=== PATIENT | female | born 1975 | race Caucasian/White ===

== ENCOUNTER 2023-01-15 20:23 | Outpatient (REF) | payer OTHER, BC, SELFPAY ==
[2023-01-22 14:10] LABS: Age Gdln ACOG Testing Note (.); HPV Aptima Negative (Negative); IGP, Aptima HPV, rfx 16/18,45 Note (.)
== END 2023-01-15 20:24 | disposition home or self-care (01) ==
LOC: LAB 20:23
PROVIDERS: PCP Family Medicine; Visit Provider Obstetrics & Gynecology
DX: Z01.419 Encounter for gynecological examination (general) (routine) without abnormal findings (principal)
CPT/HCPCS: 87624; G0145

== ENCOUNTER 2023-11-13 17:21 | Emergency (ER) | payer OTHER, SELFPAY ==
[2023-11-13 17:40] VITALS: BP 121/84; PULSE 107; TEMP 36.9; O2SAT 100
--- NOTE | 2023-11-13 17:53 | CT_ITS ---
The [address] [address] Patient Name: ELENO NOVOA MRN: [id number] date: 1975 Sex: F Assigned Patient Location: ER Current Patient Location: ED.MAIN Accession/Order Number: [id number] Exam Date: 11/13/2023 18:28 Report Date: 11/13/2023 19:23 At the request of: BRAIN JAMES Procedure: CT abdomen pelvis wo con EXAM: CT scan of the abdomen and pelvis without contrast. Dose reduction technique used: Automated exposure control and/or adjustment of the mA and/or kV according to patient size and/or use of iterative reconstruction technique. REASON FOR EXAM: right flank pain, r/o stone COMPARISON: CT scan dated 05/16/2015 FINDINGS: Small right lower pole renal cyst. Left total hip arthroplasty. No renal, ureteral or bladder calculi. No hydronephrosis. Normal appendix. No free fluid in the abdomen or pelvis. No free intraperitoneal air. No dilated or thickened loops of small bowel or colon. Liver, pancreas, spleen, bilateral kidneys, and bilateral adrenal glands are otherwise unremarkable within the limitations of noncontrast CT. No lymphadenopathy in the abdomen or pelvis. Remainder unremarkable. CT/CT abdomen pelvis wo con IMPRESSION: No acute abnormalities in the abdomen or pelvis. Electronically authenticated by: PRASHANTH OROZCO Date: 11/13/2023 19:23
--- NOTE | 2023-11-13 17:54 | ED.GENADUL1 ---
HPI HPI - General Adult General Chief complaint: Urogenital-Female Stated complaint: kidney stones Time Seen by Provider: 11/13/23 17:48 Source: patient Mode of arrival: walk-in Limitations: no limitations History of Present Illness HPI narrative: 48-year-old female presents to the emergency department for right flank pain. It is wrapping around her side and going towards her groin area now. She has had kidney stones previously and believes she is passing another 1. She has not had gross hematuria but was at her doctor's office yesterday and had microscopic hematuria. She developed worsening pain today and she has been nauseous. No trauma or left-sided pain. The pain is moderate. Related Data Allergies Allergy/AdvReac Type Severity Reaction Status Date / Time No Known Drug Allergies Allergy Verified 11/13/23 17:40 Opioid HPI Opioid Management Most Recent Opioid Data: Last Pain Scale 9 11/13/23 18:21 Last AUG Pain Assessment 11/13/23 18:21 Review of Systems ROS Narrative A ten point review of systems is negative except as noted above. Exam Narrative Exam Narrative: Nurses note and vital signs reviewed and patient is not hypoxic. General: The patient appears uncomfortable. Skin: Warm, dry, no pallor noted. There is no rash noted. Head: Normocephalic, atraumatic Eye: Normal conjunctiva, no drainage Ears, Nose, Mouth, and Throat: oral mucosa is moist. Nares patent. Cardiovascular: Regular Rate and Rhythm Respiratory: Patient is in no distress, no accessory muscle use, lungs are clear to auscultation, no wheezing, rales or rhonchi Back: non-tender, no bruise or rash GI: Soft and nontender Musculoskeletal: The patient has no evidence of calf tenderness, no pitting edema, symmetrical pulses noted bilaterally Neurological: A&O, normal speech Psychiatric: Cooperative Constitutional Vital Signs, click to edit/add: Last Vital Signs Temp 98.4 F 11/13/23 17:40 Pulse 107 H 11/13/23 17:40 Resp 11/13/23 17:40 BP 121/84 11/13/23 17:40 Pulse Ox 100 11/13/23 17:40 Course Vital Signs Vital signs: Vital Signs Temperature 98.4 F 11/13/23 17:40 Pulse Rate 107 H 11/13/23 17:40 Respiratory Rate 11/13/23 17:40 Blood Pressure 121/84 11/13/23 17:40 Pulse Oximetry 100 11/13/23 17:40 Temperature 98.4 F 11/13/23 17:40 Pulse Rate 107 H 11/13/23 17:40 Respiratory Rate 17 11/13/23 17:40 Blood Pressure 121/84 11/13/23 17:40 Pulse Oximetry 100 11/13/23 17:40 Medical Decision Making MDM Narrative Medical decision making narrative: Kidney stone is suspected and CAT scan is ordered and pending and the patient is signed out to Dr. Harrington. Lab Data Lab results reviewed: Yes I reviewed the patient's lab results Labs: Lab Results 11/13/23 11/13/23 Range/Units 17:50 18:05 Sodium 136 (136-145) mmol/L Potassium 3.8 (3.5-5.1) mmol/L Chloride 101 (98-107) mmol/L Carbon Dioxide 25.0 (21.0-32.0) mmol/L Anion Gap 13.8 BUN 8.0 (7.0-18.0) mg/dL Creatinine 0.75 (0.55-1.02) mg/dL Est GFR ( Amer) >60 (>=60) Est GFR (Non-Af Amer) >60 (>=60) BUN/Creatinine Ratio 10.7 Glucose 77 (74-106) mg/dL Calcium 9.7 (8.5-10.1) mg/dL Urine Color Lt. yellow (YELLOW) Urine Clarity Clear (CLEAR) Urine pH 6.5 (5.0-9.0) Ur Specific [place] <=1.005 A (1.005-1.025) Urine Protein Negative (NEG/TRACE) mg/dL Urine Glucose (UA) Negative (NEGATIVE) mg/dL Urine Ketones Negative (NEGATIVE) mg/dL Urine Occult Blood Trace-i (NEGATIVE) Urine Nitrite Negative (NEGATIVE) Urine Bilirubin Negative (NEGATIVE) Urine Urobilinogen 0.2 (0.2-1.0) EU/dL Ur Leukocyte Esterase Negative (NEGATIVE) Urine RBC 0-2 (0-2) #/HPF Urine WBC 0-2 A (NONE SEEN) #/HPF Ur Squamous Epith Cells None seen (NONE/RARE) #/LPF Urine Crystals None seen (None Seen) #/HPF Urine Bacteria Trace A (NONE SEEN) #/HPF Urine Casts None seen (NONE SEEN) #/LPF Urine Mucus None seen (NONE SEEN) Discharge Plan Discharge Patient Disposition: Still a Patient
[2023-11-13] MEDS: 0.9 % SODIUM CHLORIDE 1,000 ML 1000 ML IV (18:20)
[2023-11-13] MEDS: MORPHINE SULFATE 4 MG/ML VIAL IV (18:21)
[2023-11-13] MEDS: ONDANSETRON PF 4 MG/2 ML VIAL IV (18:22)
[2023-11-13 18:23] LABS: Anion Gap 13.8; BUN Creatinine Ratio 10.7; Calcium 9.7 mg/dL (8.5-10.1); Chloride 101 mmol/L (98-107); Estimated GFR (African America >60 (>=60); Estimated GFR (Non-African Ame >60 (>=60); Glucose 77 mg/dL (74-106); Potassium 3.8 mmol/L (3.5-5.1); Sodium 136 mmol/L (136-145)
[2023-11-13 18:30] LABS: Bilirubin Urine NEGATIVE (NEGATIVE); Blood Urine TRACE-I (NEGATIVE); Clarity Urine CLEAR (CLEAR); Color Urine LT. YELLOW (YELLOW); Glucose Urine UA NEGATIVE (NEGATIVE); Ketones Urine NEGATIVE (NEGATIVE); Leukocyte Esterase Urine NEGATIVE (NEGATIVE); Nitrite Urine NEGATIVE (NEGATIVE); Protein Urine NEGATIVE (NEG/TRACE); Specific Gravity Urine <=1.005 (1.005-1.025); Urobilinogen Urine 0.2 EU/dL (0.2-1.0); pH Urine 6.5 (5.0-9.0)
[2023-11-13 18:38] LABS: Bacteria Urine TRACE #/HPF (NONE SEEN); Cast Seen? NONE SEEN #/LPF (NONE SEEN); Crystals Seen? None Seen #/HPF (None Seen); Mucus Urine NONE SEEN (NONE SEEN); RBC Urine 0-2 #/HPF (0-2); Squamous Epithelial Cell Urine NONE SEEN #/LPF (NONE/RARE); WBC Urine 0-2 #/HPF (NONE SEEN)
[2023-11-13 19:21] LABS: Basophils Percent Auto 0.3 % (0.2-2.0); Eosinophils Absolute Auto 0.1 10^3/uL (0.0-0.7); Eosinophils Percent Auto 0.7 % (0.9-7.0); Hematocrit 34.2 % (36.0-48.0); Hemoglobin 11.3 g/dL (12.0-16.0); Immature Granulocytes Abs Auto 0.02 10^3/uL (0.00-0.03); Immature Granulocytes Pct Auto 0.3 % (0.0-0.5); Lymphocytes Absolute Auto 2.1 10^3/uL (1.2-3.8); Lymphocytes Percent Auto 29.9 % (20.5-60.0); Mean Corpuscular Hemoglobin 30.9 pg (26.7-34.0); Mean Corpuscular Volume 93.4 fL (81.0-99.0); Mean Platelet Volume 10.5 fL (9.5-13.5); Monocytes Absolute Auto 0.5 10^3/uL (0.3-0.8); Monocytes Percent Auto 7.2 % (1.7-12.0); Neutrophils Absolute Auto 4.4 10^3/uL (1.4-6.5); Neutrophils Percent Auto 61.6 % (43.0-75.0); Platelet Count 274 10^3/uL (150-450); Red Blood Count 3.66 10^6/uL (4.20-5.40); White Blood Count 7.1 10^3/uL (4.0-11.0)
[2023-11-13 20:16] VITALS: BP 108/76; PULSE 85; TEMP 36.9; O2SAT 97
[2023-11-13] MEDS: OXYBUTYNIN CHLORIDE 5 MG TAB XL 10 MG PO (20:48)
[2023-11-13 20:58] VITALS: PULSE 70; O2SAT 96
== END 2023-11-13 21:02 | disposition home or self-care (01) ==
PROVIDERS: Emergency Medicine; Emergency Provider Internal Medicine; PCP Family Medicine
DX: R39.15 Urgency of urination (principal); N32.81 Overactive bladder; Z87.442 Personal history of urinary calculi
CPT/HCPCS: 36415; 74176; 80048; 81001; 85025; 96374; 96375; 99285

== ENCOUNTER 2024-02-02 18:59 | Outpatient (REF) | payer OTHER, SELFPAY ==
--- OUTSIDE RECORDS SUMMARY | 2024-02-02 19:03 | XMS_ITS | CCD ---
Author Organization [facility] Care Team Providers Care Transformation Analyst Name Role Phone MOISÉSJONATHON WONG Unavailable Unavailable KAMI, ABDULAZIM Unavailable Unavailable KAMI, ABDULAZIM Unavailable Unavailable MORRIS CASTRO Unavailable Unavailable JEAN CARLOS IZQUIERDO Unavailable Unavailable [place] Unavailable Unavailable KAMI, ABDULAZIM Unavailable Unavailable [place] Unavailable Unavailable DAVID FRANCIS Unavailable Unavailable CASI, DR EVANGELISTA Primary Care Unavailable DREW FLOR Admitting Unavailable DREW FLOR Attending Unavailable DREW FLOR Consulting Unavailable BASHIR HOLLY Consulting Unavailable Seema Banerjee Unavailable Mimi Dangelo Unavailable MD Jean Carlos Izquierdo Primary Care Provider [phone] KAYLIN Dangelo Attending Provider Irma Colvin Unavailable Irma Colvin Admitting Unavailable Irma Colvin Attending Unavailable Jean Carlos Izquierdo Primary Care Unavailable Jean Carlos Izquierdo Primary Care Unavailable Mimi Dangelo Admitting Unavailable Mimi Dangelo Attending Unavailable MD Jean Carlos Izquierdo Primary Care Provider ZANE Colvin Attending Provider [phone] Jean Carlos Izquierdo MD Primary Care Provider MICHAEL NORIEGA Referring Unavailable JEAN CARLOS IZQUIERDO Primary Care Unavailable PRASHANTH CORDOVA Attending Unavailable JEAN CARLOS IZQUIERDO Referring Unavailable JEAN CARLOS IZQUIERDO Primary Care Unavailable JEAN CARLOS IZQUIERDO Referring Unavailable JEAN CARLOS IZQUIERDO Primary Care Unavailable TRENA DOLAN Referring Unavailable JEAN CARLOS IZQUIERDO Primary Care Unavailable JEAN CARLOS IZQUIERDO Referring Unavailable DEFJEAN CARLOS SIMPSON Primary Care Unavailable RAKEL PEREZ Attending Unavailable JEAN CARLOS IZQUIERDO Attending Unavailable JEAN CARLOS IZQUIERDO Referring Unavailable CHANCERANCEJEAN CARLOS Primary Care Unavailable RAKEL PEREZ Attending Unavailable DEFRANCE, JEAN CARLOS T Referring Unavailable DEFRANCE, JEAN CARLOS T Primary Care Unavailable DEFRANCE, JEAN CARLOS T Attending Unavailable DEFRANCE, JEAN CARLOS T Referring Unavailable DEFRANCE, JEAN CARLOS T Primary Care Unavailable DEFRANCE, JEAN CARLOS T Attending Unavailable DEFRANCE, JEAN CARLOS T Referring Unavailable DEFRANCE, JEAN CARLOS T Primary Care Unavailable DEFRANCE, JEAN CARLOS T Referring Unavailable DEFRANCE, JEAN CARLOS T Primary Care Unavailable DEFRANCE, JEAN CARLOS T Referring Unavailable DEFRANCE, JEAN CARLOS T Primary Care Unavailable YANNI CRUZ Attending Unavailable MARQUITA MONTERO Attending Unavailable DEFRANCE, JEAN CARLOS T Referring Unavailable DEFRANCE, JEAN CARLOS T Primary Care Unavailable DANIELLE GREGG Attending Unavailable DEFRANCE, JEAN CARLOS T Referring Unavailable DEFRANCE, JEAN CARLOS T Primary Care Unavailable DEFRANCE, JEAN CARLOS T Attending Unavailable DEFRANCE, JEAN CARLOS T Referring Unavailable DEFRANCE, JEAN CARLOS T Primary Care Unavailable ANNIE FRAZIER Attending Unavailable DEFRANCE, JEAN CARLOS T Referring Unavailable DEFRANCE, JEAN CARLOS T Primary Care Unavailable Trena Dolan Attending Unavailable Trena Dolan Attending Unavailable DEFRANCE, JEAN CARLOS Referring Unavailable JUDI SAWYER Attending Unavailable JR. MAYA, MORRIS Middleton Attending Unavaila CHAITANYA Crockett Attending Unavailable SAWYER, JUDI Potts Referring Unavailable BERLIN CORDERO Attending Unavailable SAWYER, JUDI Potts Referring Unavailable SAWYER, JUDI Potts Attending Unavailable BERLIN CORDERO Attending Unavailable SAWYER, JUDI T Referring Unavailable IRMA HUMPHRIES Attending Unavailable SAWYER, JUDI Potts Referring Unavailable HUMPHRIES, IRMA Shaw Attending Unavailable SAWYER, JUDI Potts Referring Unavailable BERLIN CORDERO Attending Unavailable DEFRANCE, JEAN CARLOS Potts Referring Unavailable CHAITANYA VENEGAS Attending Unavailable DEFRANCE, JEAN CARLOS Potts Referring Unavailable CHAITANYA VENEGAS Attending Unavailable DEFRANCE, JEAN CARLOS Potts Referring Unavailable JR. MAYA, MORRIS Middleton Attending Unavaila lucretia CASTRO JR., MORRIS Middleton Referring Unavaila LEE Ferrell Attending Unavailable DEFRANCE, JEAN CARLOS Primary Care Physician Allergies Allergy Classification Reported Allergen(s) Allergy Type Date of Onset Reaction(s) Facility [facility] (1 source) Contrast media; Translations: [RED DYE] Substance Allergy 0 [facility] (12 sources) Contrast media; Translations: [RED DYE] Propensity to adverse reactions to drug 0 Other (See Comments) [facility] (1 source) No Known Medication Allergies; Translations: [No Known Medication Allergies] Propensity to adverse reactions (disorder) [facility] Repository Medications Current Medications Medication Drug Class(es) Dates Sig (Normalized) Sig (Original) amitriptyline hydrochloride 25 mg oral tablet (11 sources) Tricyclic Antidepressant Start: 05-01-2023 take 1 tablet by mouth once daily amitriptyline (ELAVIL) 25 mg tablet Indications: Intractable migraine without aura and without status migrainosus Take 1 tablet (25 mg total) by mouth nightly. 90 tablet 1 05/01/2023 Active amphetamine aspartate 2.5 mg / amphetamine sulfate 2.5 mg / dextroamphetamine saccharate 2.5 mg / dextroamphetamine sulfate 2.5 mg oral tablet (15 sources) Central Nervous System Stimulant Start: 07-06-2023 take 1 tablet by mouth once daily at breakfast dextroamphetamine -amphetamine (AdderalL) 10 mg tablet Indications: Attention deficit hyperactivity disorder (ADHD), combined type Take 1 tablet (10 mg total) by mouth daily with breakfast AND 1 tablet (10 mg total) Daily after lunch. Max Daily Amount: 20 mg. 60 tablet 0 08/17/2023 Active Start: 05-21-2023 take 1 tablet by benji th once daily at breakfast dextroamphetamine-amphetamine (AdderalL) 10 mg tablet Indications: Attention deficit hyperactivity disorder (ADHD), combined type Take 1 tablet (10 mg total) by mouth daily with breakfast AND 1 tablet (10 mg total) Daily after lunch. Max Daily Amount: 20 mg. 60 tablet 0 05/21/2023 Active Start: 08-27-2021 take 10 mg by mouth twice daily Dextroamphetamine-Amphetamine Active 10 MG PO Twice daily August 27, 2021 1:00am ARIPiprazole 10 mg oral tablet (3 sources) Atypical Antipsychotic Start: 08-31-2021 take 10 mg by mouth once daily at bedtime Aripiprazole Active 10 MG PO Daily at bedtime August 31, 2021 1:00am azithromycin 250 mg oral tablet (3 sources) Macrolide Antimicrobial Start: 08-24-2023 End: 08-28-2023 azithromycin (ZITHROMAX) 250 mg tablet TAKE 2 TABLETS BY MOUTH TODAY, THEN TAKE 1 TABLET DAILY FOR 4 DAYS DIRECTED 6 tablet 0 08/24/2023 08/28/2023 Active Start: 08-11-2023 End: 08-16-2023 take 1 tablet by mouth in the morning, then take 2 tablets by mouth once daily, then take 1 tablet by mouth once daily azithromycin (ZITHROMAX) 250 mg tablet Take 1 tablet (250 mg total) by mouth in the morning for 5 days. Take 2 tablets the first day, then 1 tablet daily for 4 days.. 6 tablet 0 08/11/2023 08/16/2023 Active cholecalciferol 0.075 mg oral tablet (3 sources) Vitamin D Start: 08-31-2021 take 75 ug by mouth once daily Cholecalciferol (Vitamin D3) Active 75 MCG PO Daily August 31, 2021 1:00am Klonopin (16 sources) Benzodiazepine Start: 07-22-2023 Klonopin Oral, TID, Refills(s) 0 Start Date: 07/22/23 Status: Ordered Start: 04-20-2023 take 1 tablet by benji th twice daily as needed for anxiety clonazePAM (KlonoPIN) 0.5 mg tablet Indications: Generalized anxiety disorder Take 1 tablet (0.5 mg total) by mouth 2 (two) times a day as needed for anxiety. 180 tablet 0 04/20/2023 Active take 1 tablet by benji th twice daily clonazePAM 0.5 MG (Schedule IV Drug) TAKE 1 TABLET BY MOUTH TWICE A DAY Oral for 15 Active cloNIDine hydrochloride 0.1 mg oral tablet (3 sources) Central alpha-2 Adrenergic Agonist Start: 08-27-2021 take 0.1 mg by mouth once daily at bedtime Clonidine Hcl Active 0.1 MG PO Daily at bedtime August 27, 2021 1:00am Cymbalta (19 sources) Serotonin and Norepinephrine Reuptake Inhibitor Start: 07-22-2023 Cymbalta Oral, Refills(s) 0 Start Date: 07/22/23 Status: Ordered Start: 05-01-2023 take 2 capsules by m outh once daily DULoxetine (CYMBALTA) 60 mg capsule Take 2 capsules (120 mg total) by mouth once daily. 180 capsule 0 05/01/2023 Active Start: 08-27-2021 take 120 mg by mouth once daily at bedtime Duloxetine Active 120 MG PO Daily at bedtime August 27, 2021 1:00am take 1 capsule by mo sdh twice daily DULoxetine HCl 60 MG TAKE 1 CAPSULE (60 MG TOTAL) BY MOUTH 2 (TWO) TIMES A DAY. Oral for 15 Active eletriptan 40 mg oral tablet (16 sources) Serotonin-1b and Serotonin-1d Receptor Agonist Start: 05-28-2023 End: 09-07-2023 take 1 tablet by mouth once as needed eletriptan (RELPAX) 40 mg tablet Indications: Intractable migraine without aura and without status migrainosus Take 1 tablet (40 mg total) by mouth once as needed for migraine for up to 12 doses. May repeat in 2 hours if unresolved. Do not exceed 80 mg in 24 hours. 6 tablet 1 09/07/2023 Active Start: 12-26-2021 take 1 tablet by benji th every twenty-four hours Relpax 40 MG 1 tablet Orally Once a day for 10 day(s) Dec, Active fluconazole 150 mg oral tablet (1 source) Azole Antifungal Start: 12-30-2023 fluconazole 150 mg Tab Refills(s) 0 Start Date: 12/30/23 Status: Ordered FLUoxetine 20 mg oral capsule (1 source) Serotonin Reuptake Inhibitor take 1 capsule by mouth once daily FLUoxetine HCl 20 MG TAKE 1 CAPSULE BY MOUTH EVERY DAY Oral for 14 Active hydrOXYzine pamoate 50 mg oral capsule (3 sources) Antihistamine Start: 08-31-2021 take 50 mg by mouth every six hours Hydroxyzine Pamoate Active 50 MG PO Q6H 60 August 31, 2021 1:00am meloxicam 15 mg oral tablet (3 sources) Nonsteroidal Anti-inflammatory Drug Start: 08-27-2021 take 15 mg by mouth once daily Meloxicam Active 15 MG PO Daily August 27, 2021 1:00am nicotine 2 mg chewing gum (3 sources) Cholinergic Nicotinic Agonist Start: 08-31-2021 Nicotine (Polacrilex) Active 2 MG BUCCAL Q2H 60 August 31, 2021 1:00am pantoprazole 40 mg delayed release oral tablet (13 sources) Proton Pump Inhibitor Start: 12-01-2023 Pantoprazole Active MG PO December 01, 2023 12:00am Start: 05-12-2023 End: 09-07-2023 take 1 tablet by mouth before breakfast pantoprazole (PROTONIX) 40 mg EC tablet Indications: Dysphagia, unspecified type , Gastroesophageal reflux disease, unspecified whether esophagitis present TAKE 1 TABLET BY MOUTH IN THE MORNING AND THE EVENING. TAKE 30 MINUTES BEFORE BREAKFAST AND DINNER. 180 tablet 1 09/07/2023 Active pregabalin 50 mg oral capsule (19 sources) Start: 07-22-2023 take 1 mg by mouth twice daily Lyrica 50 mg Cap mg cap(s), Oral, BID, Refills(s) 0 Start Date: 07/22/23 Status: Ordered Start: 10-03-2022 take 2 capsules by m outh once daily pregabalin (LYRICA) 25 mg capsule Take 2 capsules (50 mg total) by mouth nightly. 0 10/03/2022 Active Start: 08-27-2021 take 1 capsule by mo uth once daily Pregabalin (Lyrica) 100 mg Capsule Active 100 MG PO Daily August 27, 2021 1:00am is gradually tapering off take 1 capsule by mo uth every eight hours Lyrica 150 MG 1 capsule p.o. tid Active promethazine hydrochloride 12.5 mg oral tablet (3 sources) Phenothiazine Start: 12-26-2021 take 1 tablet by mouth every eight hours Promethazine HCl 12.5 MG 1 tablet as needed Orally every 8 hrs for 4 days Dec, Active tamsulosin hydrochloride 0.4 mg oral capsule (1 source) alpha-Adrenergic Kelly Start: 12-01-2023 Tamsulosin Active MG PO December 01, 2023 12:00am traZODone hydrochloride 50 mg oral tablet (12 sources) Serotonin Reuptake Inhibitor Start: 07-22-2023 traZODONE 50 mg Tab Refills(s) 0 Start Date: 07/22/23 Status: Ordered Start: 01-16-2023 take 2 tablets by mo uth once daily traZODone (DESYREL) 50 mg tablet Indications: Other insomnia Take 2 tablets (100 mg total) by mouth nightly. 180 tablet 3 01/16/2023 Active valACYclovir 1000 mg oral tablet (3 sources) Herpesvirus Nucleoside Analog DNA Polymerase Inhibitor, Herpes Simplex Virus Nucleoside Analog DNA Polymerase Inhibitor, Herpes Zoster Virus Nucleoside Analog DNA Polymerase Inhibitor Start: 08-27-2021 take 1000 mg by mouth twice daily Valacyclovir Active 1000 MG PO Twice daily August 27, 2021 1:00am varenicline 1 mg oral tablet (6 sources) Partial Cholinergic Nicotinic Agonist Start: 09-25-2023 take 1 tablet by mouth at bedtime varenicline (CHANTIX) 1 mg tablet TAKE 1 TABLET BY MOUTH IN THE MORNING AND BEFORE BEDTIME. TAKE WITH FULL GLASS OF WATER 180 tablet 0 09/25/2023 Active Start: 06-01-2023 End: 08-11-2023 take 1 tablet by mouth at bedtime varenicline (CHANTIX) 1 mg tablet TAKE 1 TABLET BY MOUTH IN THE MORNING AND BEFORE BEDTIME. TAKE WITH FULL GLASS OF WATER 180 tablet 0 06/01/2023 08/11/2023 Discontinued Completed/Discontinued Medications Medication Drug Class(es) Dates Sig (Normalized) Sig (Original) amphetamine sulfate 10 mg oral tablet (3 sources) Central Nervous System Stimulant Start: 08-27-2021 End: 08-27-2021 take 10 mg by mouth twice daily Amphetamine Sulfate Discontinued 10 MG PO Twice daily August 27, 2021 1:00am August 27, 2021 8:33pm Ketorolac (7 sources) Nonsteroidal Anti-inflammatory Drug, Cyclooxygenase Inhibitor Start: 12-26-2021 Toradol per 15 mg Dec, 30 mg Start: 01-17-2019 Toradol per 15 mg Dec, 60 mg lamoTRIgine 100 mg oral tablet (12 sources) Mood Stabilizer, Anti-epileptic Agent Start: 05-21-2023 lamotrigine 100 mg Tab 90 EA, 0 Refill(s), TAKE 1 TABLET BY MOUTH EVERY DAY, Refills(s) 0 Start Date: 07/15/23 Status: Ordered levothyroxine sodium 0.1 mg oral tablet (19 sources) l-Thyroxine Start: 07-15-2023 levothyroxine 100 mcg (0.1 mg) Tab 90 EA, 0 Refill(s), TAKE 1 TABLET (100 MCG TOTAL) BY MOUTH IN THE MORNING, Refills(s) 0 Start Date: 07/15/23 Status: Ordered Start: 08-27-2021 take 1 tablet by benji th in the morning levothyroxine (SYNTHROID, LEVOTHROID) 100 MCG tablet TAKE 1 TABLET (100 MCG TOTAL) BY MOUTH IN THE MORNING 90 tablet 3 06/01/2023 Active take 1 tablet by benji th once daily in the morning Synthroid 100 MCG 1 tablet in the morning on an empty stomach Orally Once a day Active triamcinolone acetonide 40 mg/ml injectable suspension (3 sources) Corticosteroid Start: 12-26-2021 Kenalog-40 Dec, 40 mg Problems Active Problems Problem Classification Problem Date Documented Date Episodic/Chronic Abdominal pain (1 source) Flank pain 07-22-2023 Episodic Anxiety disorders (15 sources) Anxiety; Translations: [Anxiety disorder, unspecified] Onset: 01-30-2017 08-28-2021 Chronic Attention-deficit, conduct, and disruptive behavior disorders (11 sources) Attention deficit hyperactivity disorder, combined type; Translations: [Attention-deficit hyperactivity disorder, combined type] Onset: 05-14-2021 05-14-2021 Chronic Attention-deficit, conduct, and disruptive behavior disorders (1 source) Attention-deficit hyperactivity disorder, combined type; Translations: [Attention-deficit hyperactivity disorder, combined type] Onset: 05-14-2021 Chronic Attention-deficit, conduct, and disruptive behavior disorders (1 source) Attention deficit hyperactivity disorder 07-22-2023 Chronic Blindness and vision defects (1 source) Visual impairment 07-17-2023 Chronic Calculus of urinary tract (6 sources) Calculus of kidney; Translations: [Kidney stone] Onset: 11-12-2023 Episodic Conditions associated with dizziness or vertigo (1 source) Dizziness; Translations: [Dizziness and giddiness] 08-11-2023 Episodic Esophageal disorders (20 sources) Gastroesophageal reflux disease; Translations: [Gastro-esophageal reflux disease without esophagitis] Onset: 10-23-2021 10-23-2021 Chronic Genitourinary symptoms and ill-defined conditions (1 source) Increased frequency of urination 07-17-2023 Episodic Headache; including migraine (20 sources) Refractory migraine without aura; Translations: [Migraine without aura, intractable, with status migrainosus] Onset: 09-29-2018 Resolved: 12-26-2021 Chronic Immunizations and screening for infectious disease (3 sources) Contact with and (suspected) exposure to other viral communicable diseases; Translations: [Contact with and (suspected) exposure to other viral communicable diseases] Onset: 03-06-2022 Resolved: 03-06-2022 Episodic Mood disorders (20 sources) Major depressive disorder; Translations: [Major depressive disorder, single episode, unspecified] Onset: 01-30-2017 08-27-2021 Chronic Osteoarthritis (1 source) Osteoarthritis 07-17-2023 Chronic Other acquired deformities (4 sources) Lumbar spondylolisthesis; Translations: [Spondylolisthesis, lumbar region] Episodic Other aftercare (1 source) Other retirement (current) drug therapy; Translations: [OTH LONG-TERM CURRENT DRUG THERAPY] Onset: 09-09-2021 Episodic Other connective tissue disease (4 sources) Medial epicondylitis, right elbow; Translations: [MEDIAL EPICONDYLITIS, RIGHT ELBOW] Onset: 05-11-2018 Episodic Other connective tissue disease (16 sources) Fibromyalgia; Translations: [Fibromyalgia] Onset: 01-21-2018 01-21-2018 Episodic Other connective tissue disease (1 source) Pain in left hand Episodic Other diseases of kidney and ureters (1 source) Acquired renal cystic disease; Translations: [Cyst of kidney, acquired] 06-23-2023 Episodic Other diseases of kidney and ureters (1 source) Acquired renal cyst 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; Translations: [Cyst of kidney, acquired] Onset: 12-30-2023 Episodic Other diseases of kidney and ureters (1 source) Cyst of kidney 07-22-2023 Episodic Other diseases of kidney and ureters (1 source) Kidney lesion 07-22-2023 Episodic Other ear and sense organ disorders (1 source) Asymmetrical sensorineural hearing loss; Translations: [Sensorineural hearing loss, bilateral] 08-11-2023 Chronic Other ear and sense organ disorders (1 source) Sensorineural hearing loss, bilateral; Translations: [Sensorineural hearing loss, bilateral] Onset: 08-11-2023 Chronic Other ear and sense organ disorders (1 source) Hearing loss Onset: 08-11-2023 Chronic Other ear and sense organ disorders (1 source) Hearing problem Onset: 08-11-2023 Chronic Other nervous system disorders (4 sources) Complex regional pain syndrome type I of left lower limb; Translations: [Complex regional pain syndrome I of left lower limb] Chronic Other nervous system disorders (11 sources) Ulnar nerve entrapment at elbow; Translations: [Lesion of ulnar nerve, unspecified upper limb] Onset: 11-02-2017 01-16-2020 Chronic Other nervous system disorders (1 source) Trigeminal neuralgia 07-17-2023 Episodic Other non-epithelial cancer of skin (1 source) Malignant neoplasm of skin 07-17-2023 Episodic Other upper respiratory disease (1 source) Deviated nasal septum; Translations: [Deviated nasal septum] 08-11-2023 Episodic Other upper respiratory infections (1 source) Sinusitis Onset: 08-11-2023 Chronic Skin and subcutaneous tissue infections (3 sources) Onychia of finger; Translations: [Cellulitis of right finger] Onset: 12-14-2023 12-01-2023 Episodic Spondylosis; intervertebral disc disorders; other back problems (15 sources) Inflammation of sacroiliac joint; Translations: [Sacroiliitis, not elsewhere classified] Onset: 03-19-2017 03-19-2017 Chronic Spondylosis; intervertebral disc disorders; other back problems (20 sources) Pain in the coccyx; Translations: [Sacrococcygeal disorders, not elsewhere classified] Onset: 03-14-2020 04-11-2020 Episodic Substance-related disorders (1 source) Nicotine dependence, cigarettes, uncomplicated; Translations: [NICOTINE DEPEND CIGARETTES UNCOMP] Onset: 09-09-2021 Chronic Superficial injury; contusion (1 source) Contusion of left hand, initial encounter Episodic Syncope (4 sources) Syncope and collapse; Translations: [SYNCOPE AND COLLAPSE] Onset: 09-04-2021 Episodic Thyroid disorders (1 source) Hypothyroidism 07-17-2023 Chronic Unclassified (2 sources) Unknown / UNK(Unknown) Onset: 05-11-2018 Unclassified (1 source) Pain in left hand; Translations: [Pain in left hand] Onset: 10-01-2022 Unclassified (1 source) Injury, unspecified, initial encounter; Translations: [Injury, unspecified, initial encounter] Onset: 04-27-2022 Unclassified (1 source) infected middle right finger Onset: 12-14-2023 Unclassified (1 source) Finding of sensation of bladder 07-22-2023 Urinary tract infections (2 sources) Cystitis, unspecified without hematuria; Translations: [Urinary tract infectious disease] Onset: 11-03-2023 Episodic Past or Other Problems Problem Classification Problem Date Documented Da te Episodic/Chronic Mood disorders (11 sources) Mood disorders Onset: 05-25-2023 05-25-2023 Open wounds of extremities (1 source) Puncture wound without foreign body, left foot, initial encounter Onset: 10-12-2021 Resolved: 10-12-2021 Episodic Other and unspecified benign neoplasm (11 sources) History of polyp of colon; Translations: [Personal history of colonic polyps] Onset: 06-03-2023 06-03-2023 Episodic Other connective tissue disease (11 sources) Medial epicondylitis; Translations: [Medial epicondylitis, unspecified elbow] Onset: 11-02-2017 01-16-2020 Episodic Other gastrointestinal disorders (11 sources) Abdominal bloating; Translations: [Abdominal distension (gaseous)] Onset: 06-03-2023 06-03-2023 Episodic Other gastrointestinal disorders (11 sources) Constipation; Translations: [Constipation, unspecified] Onset: 06-03-2023 06-03-2023 Episodic Other gastrointestinal disorders (12 sources) Dysphagia; Translations: [Dysphagia, unspecified] Onset: 10-23-2021 Resolved: 06-03-2023 06-03-2023 Episodic Other gastrointestinal disorders (1 source) Abdominal distension (gaseous); Translations: [Abdominal distension (gaseous)] Onset: 06-03-2023 Episodic Other gastrointestinal disorders (1 source) Constipation, unspecified; Translations: [Constipation, unspecified] Onset: 06-03-2023 Episodic Other lower respiratory disease (1 source) Cough Onset: 08-11-2023 Episodic Other non-traumatic joint disorders (11 sources) Hip pain; Translations: [Pain in left hip] Onset: 08-25-2022 08-25-2022 Episodic Other upper respiratory disease (2 sources) Nasal congestion; Translations: [Nasal congestion] Onset: 08-11-2023 08-11-2023 Episodic Other upper respiratory disease (1 source) Nasal congestion; Translations: [Nasal congestion] Onset: 08-11-2023 Episodic Other upper respiratory disease (1 source) Pain in throat Onset: 08-11-2023 Episodic Other upper respiratory disease (1 source) Deviated nasal septum; Translations: [Deviated nasal septum] Onset: 08-11-2023 Episodic Other upper respiratory infections (3 sources) Acute upper respiratory infection, unspecified; Translations: [Acute maxillary sinusitis] Onset: 03-06-2022 Resolved: 03-06-2022 Episodic Unclassified (11 sources) Onset: 08-09-2019 Resolved: 08-11-2023 08-09-2019 Results Test Name Value Interpretation Reference Range Facility [facility] 12-04-2023 Lab Reports [id number] Normal [facility] 12-03-2023 Lab Reports [id number] Normal [facility] BLOOD UREA NITROGENon 2023 Urea nitrogen [Mass/Vol] 9 mg/dL Normal 5-23 [facility] Comment on above: Performed By: #### 3 094-0, 11524-7, , 2028-02, [employer], 2823- 3, 2951-2, 3084-1, 2731-8 #### [facility] ([id number]) [address], [address] [place] [address] CALCIUMon 11-27-2023 Calcium [Mass/Vol] 9.3 mg/dL Normal 8.5-10.5 [facility] Comment on above: Performed By: #### 3 094-0, 67331-2, , 2028-02, [employer], 2823- 3, 2951-2, 3084-1, 2731-8 #### [facility] ([id number]) [address], [address] [place] [address] CARBON DIOXIDEon 11-27-2023 CO2 [Moles/Vol] 27 mmol/L Normal 22-32 [facility] Comment on above: Performed By: #### 3 094-0, 74963-4, , 2028-02, [employer], 2823- 3, 2951-2, 3084-1, 2731-8 #### [facility] ([id number]) [address], [address] [place] [address] CHLORIDEon 11-27-2023 Chloride [Moles/Vol] 105 mmol/L Normal 98-109 [facility] Comment on above: Performed By: #### 3 094-0, 84931-9, , 2028-02, [employer], 2823- 3, 2951-2, 3084-1, 2731-8 #### [facility] [facility] ([id number]) [address], [address] [place] [address] CREATININEon 11-27-2023 Creatinine [Mass/Vol] 0.67 mg/dL Normal 0.40-1.00 [facility] Comment on above: Result Comment: METH OD TRACEABLE TO IDMS STANDARD Performed By: #### 3 094-0, 60845-4, , 2028-02, [employer], 2823-3, 2951-2, 3084-1, 2731-01 #### [facility] ([id number]) [address], [address] [place] [address] eGFR (CKD-EPI) NON-RACE DEPENDENT >90 Normal >59 [facility] Comment on above: Result Comment: Reported eGFR is based on the CKD-EPI 2020 equation that does not use a race coefficient. Performed By: #### 3 094-0, 66411-0, , 2028-02, [employer], 2823-3, 2951-2, 3084-1, 2731-01 #### [facility] ([id number]) [address], [address] [place] [address] POTASSIUMon 11-27-2023 Potassium [Moles/Vol] 4.2 mmol/L Normal 3.5-5.0 [facility] Comment on above: Performed By: #### 3 094-0, 72463-7, , 2028-02, [employer], 2823- 3, 2951-2, 3084-1, 2730-8 #### [facility] ([id number]) [address], [address] [place] [address] Parathyrin.intact [Mass/Vol] on 11-27-2023 PTH INTACT 62 pg/mL Normal 12-88 [facility] Comment on above: Performed By: #### 3 094-0, 04191-7, , 2028-02, [employer], 2823- 3, 2951-2, 3084-1, 2731-8 ####[facility] ([id number])[address], [address], [place] [address] SODIUMon 11-27-2023 Sodium [Moles/Vol] 138 mmol/L Normal 134-146 [facility] Comment on above: Performed By: #### 3 094-0, 43042-7, , 2028-02, [employer], 2823- 3, 2951-2, 3084-1, 2731-8 #### [facility] ([id number]) [address], [address] [place] [address] URIC ACIDon 11-27-2023 Urate [Mass/Vol] 3.5 mg/dL Normal 2.6-7.2 [facility] Comment on above: Performed By: #### 3 094-0, 59589-8, , 2028-02, [employer], 2823- 3, 2951-2, 3084-1, 2731-8 #### [facility] ([id number]) [address], [address] [place] [address] ED Note-Physicianon 11-24-19 ED Note-Physician [id number]#[id number] Normal [facility] XR SPINE CERVICAL 4 OR 5 VWS on 10-05-2023 XR SPINE CERVICAL 4 OR 5 VWS XR SPINE CERVICAL 4 OR 5 VWS History: Neck pain on the right side for 4 weeks. Exam/Technique: Cervical spine: 5 Views Comparison: None Findings: The vertebral heights and intervertebral disc spaces are normal. No evidence of fractures or malalignment is seen with straightening and loss of the normal lordosis likely from muscle spasm and minimal disc space narrowing seen at C4-5. The odonoid process is intact but limited in visualization due to overlying teeth.There is no evidence of bony cervical ribs. No prevertebral soft tissue abnormality is identified. Bilateral oblique views revealed patent neural foramina bilaterally. IMPRESSION: Normal cervical spine radiographs apart from minimal narrowing of the disc space at C4-5 and straightening with loss of the lordosis likely from muscle spasm. Finalized by Elizabeth Alejandre MD on 10/05/2023 7:49 PM Normal [facility] POCT Influenza A/Influenza B /SARS-COV-2 VeritorOrdered By: Shyann Laird on 08-11-2023 External Poct Influenza A Antigen Negative [facility] External Poct Influenza B Antigen Negative [facility] Interpretation and review of laboratory results Normal [facility] SARS-CoV-2 (COVID-19) Ag IA.rapid Ql (Resp) Negative [facility] Physician Referralon 024 Physician Referral [id number] Normal [facility] Screenson 07-28-2023 Screens [id number]#1.00TIFF Normal [facility] Formson 07-23-2023 Forms [id number]#1.00TIFF Normal [facility] Patient Educationon 07-22-19 24 Patient Education Nephrology Dietary Guidelines to Help Prevent Kidney Stones Kidney stones are deposits of minerals and salts that form inside your kidneys. Your risk of developing kidney stones may be greater depending on your diet, your lifestyle, the medicines you take, and whether you have certain medical conditions. Most people can lower their risks of developing kidney stones by following these dietary guidelines. Your dietitian may give you more specific instructions depending on your overall health and the type of kidney stones you tend to develop. What are tips for following this plan? Reading food labels ? Choose foods with no salt added or low-salt labels. Limit your salt (sodium) intake to less than 1,500 mg a day. ? Choose foods with calcium for each meal and snack. Try to eat about 300 mg of calcium at each meal. Foods that contain 200?500 mg of calcium a serving include: ? 8 oz (237 mL) of milk, gcxehhz-mbndxqczatog-iquj y milk, and calcium-fortifiedfruit juice. Calcium-fortified means that calcium has been added to these drinks. ? 8 oz (237 mL) of kefir, yogurt, and soy yogurt. ? 4 oz (114 g) of tofu. ? 1 oz (28 g) of cheese. ? 1 cup (150 g) of dried figs. ? 1 cup (91 g) of cooked broccoli. ? One 3 oz (85 g) can of sardines or mackerel. Most people need 1,000?1,500 mg of calcium a day. Talk to your dietitian about how much calcium is recommended for you. Shopping ? Buy plenty of fresh fruits and vegetables. Most people do not need to avoid fruits and vegetables, even if these foods contain nutrients that may contribute to kidney stones. ? When shopping for convenience foods, choose: ? Whole pieces of fruit. ? Pre-made salads with dressing on the side. ? Low-fat fruit and yogurt smoothies. ? Avoid buying frozen meals or prepared deli foods. These can be high in sodium. ? Look for foods with live cultures, such as yogurt and kefir. ? Choose high-fiber grains, such as whole-wheat breads, oat bran, and wheat cereals. Cooking ? Do not add salt to food when cooking. Place a salt shaker on the table and allow each person to add their own salt to taste. ? Use vegetable protein, such as beans, textured vegetable protein (TVP), or tofu, instead of meat in pasta, casseroles, and soups. Meal planning ? Eat less salt, if told by your dietitian. To do this: ? Avoid eating processed or pre-made food. ? Avoid eating fast food. ? Eat less animal protein, including cheese, meat, poultry, or fish, if told by your dietitian. To do this: ? Limit the number of times you have meat, poultry, fish, or cheese each week. Eat a diet free of meat at least 2 days a week. ? Eat only one serving each day of meat, poultry, fish, or seafood. ? When you prepare animal proteins, cut pieces into small portion sizes. For most meat and fish, one serving is about the size of the palm of your hand. ? Eat at least five servings of fresh fruits and vegetables each day. To do this: ? Keep fruits and vegetables on hand for snacks. ? Eat one piece of fruit or a handful of berries with breakfast. ? Have a salad and fruit at lunch. ? Have two kinds of vegetables at dinner. ? You may be told to limit foods that are high in a substance called oxalate. These include: ? Spinach (cooked), rhubarb, beets, sweet potatoes, and Latvian chard. ? Peanuts. ? Potato chips, kazakh fries, and baked potatoes with skin on. ? Nuts and nut products. ? Chocolate. ? If you regularly take a diuretic medicine, make sure to eat at least 1 or 2 servings of fruits or vegetables that are high in potassium each day. These include: ? Avocado. ? Banana. ? [place], prune, carrot, or tomato juice. ? Baked potato. ? Cabbage. ? Beans and split peas. Lifestyle ? Drink enough fluid to keep your urine pale yellow. This is the most important thing you can do. Spread your fluid intake throughout the day. ? If you drink alcohol: ? Limit how much you have to: ? 0?1 drink a day for women who are not . ? 0?2 drinks a day for men. ? Know how much alcohol is in your drink. In the [place] one drink equals one 12 oz bottle of beer (355 mL), one 5 oz glass of wine (148 mL), or one 1? oz glass of hard liquor (44 mL). ? Lose weight if told by your health care provider. Work with your dietitian to find an eating plan and weight loss strategies that work best for you. General information ? Talk to your health care provider and dietitian about taking daily supplements. Depending on your health and the cause of your kidney stones, you may be told: ? Do not take high-dose supplements of vitamin C (1,000 mg a day or more). ? To take a calcium supplement. ? To take a daily probiotic supplement. ? To take other supplements such as magnesium, fish oil, or vitamin B6. ? Take dtni-vfl-emktosi and prescription medicines only as told by your health care provider. These include supplements. What foods sh (more content not included)... Normal [facility] CT ABDOMEN AND PELVIS W CONT on 06-16-2023 CT ABDOMEN AND PELVIS W CONT CT ABDOMEN AND PELVIS W CONT CT ABDOMEN AND PELVIS W CONT HISTORY: Bloating, constipation COMPARISON: 05/16/2015 TECHNIQUE: CT images of abdomen and pelvis obtained following administration of contrast. Automated exposure control was utilized. All CT scans at this facility use dose modulation, iterative reconstruction, and/or weight based dosing when appropriate to reduce radiation dose to as low as reasonably achievable. CONTRAST: Oral: None IV: 100 mL Omnipaque 300 FINDINGS: LOWER CHEST: Small atelectasis versus scarring in the left lung base. No pleural effusion. No cardiomegaly or pericardial effusion. LIVER AND BILIARY: Noncirrhotic liver morphology. No definite hepatic mass or lesion. Portal venous system is patent. Gallbladder is nondistended. PANCREAS: Unremarkable SPLEEN: Unremarkable. ADRENALS: No adrenal mass or lesion bilaterally. KIDNEYS, URETERS, AND BLADDER: An incidental 1.4 cm cystic renal lesion with minimal smooth thickening of the wall, is seen in the lower pole of the right kidney. No left renal masses. There is a 4 mm nonobstructive left interpolar calculus. No evidence of collecting system dilatation. The ureters are unremarkable. View of bladder is partially obscured due to imaging artifact from left hip arthroplasty. No obvious abnormalities.. GI TRACT AND PERITONEUM: Mild to moderate colonic stool burden in the ascending and transverse colon. The appendix and terminal ileum are unremarkable. No evidence of bowel obstruction. No pericolonic fat stranding or free intraperitoneal gas. VASCULATURE: The abdominal aorta is nonaneurysmal. LYMPH NODES: No significantly enlarged mesenteric or retroperitoneal lymph nodes. REPRODUCTIVE ORGANS: Anteverted uterus is present. Grossly unremarkable. MUSCULOSKELETAL: No acute osseous abnormalities. Left hip arthroplasty with adjacent well-circumscribed lytic lesion in the superior acetabulum measuring up to 1.6 mm. 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 IMPRESSION: * No acute findings in the abdomen/pelvis. * Mild to moderate colonic stool burden. * Right renal lesion measuring 1.4 cm is a Bosniak category IIF cyst. The large majority of Bosniak IIF lesions are benign. When malignant, nearly all are indolent. Generally, Bosniak IIF lesions are followed by imaging at 6 months and 12 months, then annually for a total of 5 years to assess for morphologic change. Santana Sexton., Kendy Mitchell, Supa Yancey., Bob Garcia., Bob Aaron, Marin Hargrove., Elizabeth Linton., Marin Lindsey., Bob Quinn., Jorge Luis, S. S., Raleigh S. Denisha., Santana Herrmann., Pk Lujan., Jesús Khan., & Margie, M. S. (2019). Bosniak Classification of Cystic Renal Masses, Version 2019: An Update Proposal and Needs Assessment. Radiology, 292(2), 475?488. https://doi.org/10.1148/r adiol.[email or web address] CITATION: Colette RODAS, et al. Management of the Incidental Renal Mass on CT: A White Paper of the ACR Incidental Findings Committee. J Am Kathy Radiol. 2018 Jul;15(2):264-273. I, Vamsi Acosta MD have personally reviewed the image(s) and agree with and/or edited the report Finalized by Vamsi Acosta MD on 06/16/2023 3:03 PM Normal [facility] XR hand LT min 3V*on 023 XR hand LT min 3V* [facility] Main [place] [address] [place] [address] XRay Report Signed Patient: Evie Novoa MR#: [id number] 7 : 1975 Acct:[id number] Age/Sex: 47 / F ADM Date: 10/01/22 [facility] Room: Type: [facility] Attending Dr: Irma DEGROOT Copies to: ZANE Cuellar Ordering Provider: ZANE Cuellar Date of Service: 10/01/22 XR/XR hand LT min 3V*: Left hand pain LEFT HAND - 3 views CLINICAL DATA: Pain, swelling and bruising over the dorsum of the hand after patient grabbed a falling shelf while shopping. COMPARISON: None AP, lateral and oblique views were obtained. There is no evidence of fracture or dislocation. There is slight narrowing of the interphalangeal joint spaces, without associated hypertrophy. There is minimal soft tissue swelling over the dorsum of the metacarpal heads.. XR/XR hand LT min 3V* IMPRESSION: NO ACUTE BONY INJURY. Impression dictated by: Monserrat Vela M.D.10/01/2022 12:31 PM Dictation Location: [place] [address] Transcribed By: [facility] 10/01/22 1231 Dictated By: Monserrat Vela MD 10/01/22 1229 Signed By: 10/01/[address] [facility] XR hand LT min 3V* [facility] [employer] Other XR hand LT min 3V* [facility] [employer] Other XR hand LT min 3V* [address] [place] [address] [employer] Other XR hand LT min 3V* [place] [address] [employer] Other XR hand LT min 3V* XRay Report [employer] Other XR hand LT min 3V* Signed [employer] Other XR hand LT min 3V* Patient: Evie Novoa MR#: [id number] [employer] Other XR hand LT min 3V* 7 [employer] Other XR hand LT min 3V* : 1975 Acct:[id number] [employer] Other XR hand LT min 3V* Age/Sex: 47 / F ADM Date: 10/01/22 [employer] Other XR hand LT min 3V* Loc: [facility] Room: Type: [facility] [employer] Other XR hand LT min 3V* Attending Dr: Irma DEGROOT [employer] Other XR hand LT min 3V* Copies to: ZANE Cuellar [employer] Other XR hand LT min 3V* Ordering Provider: ZANE Cuellar [employer] Other XR hand LT min 3V* Date of Service: 10/01/22 [employer] Other XR hand LT min 3V* XR/XR hand LT min 3V*: Left hand pain [employer] Other XR hand LT min 3V* LEFT HAND - 3 views [employer] Other XR hand LT min 3V* CLINICAL DATA: Pain, swelling and bruising over the dorsum of the hand after patient grabbed a [employer] Other XR hand LT min 3V* falling shelf while shopping. [employer] Other XR hand LT min 3V* COMPARISON: None [employer] Other XR hand LT min 3V* AP, lateral and oblique views were obtained. There is no evidence of fracture or dislocation. [employer] Other XR hand LT min 3V* There is slight narrowing of the interphalangeal joint spaces, without associated hypertrophy. [employer] Other XR hand LT min 3V* There is minimal soft tissue swelling over the dorsum of the metacarpal heads.. [employer] Other XR hand LT min 3V* XR/XR hand LT min 3V* [employer] Other XR hand LT min 3V* IMPRESSION: [employer] Other XR hand LT min 3V* NO ACUTE BONY INJURY. [employer] Other XR hand LT min 3V* Impression dictated by: Monserrat Vela M.D.10/01/2022 12:31 PM [employer] Other XR hand LT min 3V* Dictation Location: [facility]-02 [employer] Other XR hand LT min 3V* Transcribed By: RITIKA 10/01/22 1231 [employer] Other XR hand LT min 3V* Dictated By: Monserrat Vela MD 10/01/22 1229 [employer] Other XR hand LT min 3V* Signed By: [employer] Other XR hand LT min 3V* 10/01/22 1237 [employer] Other MRI Hip w/o Lefton MRI Hip w/o Left History: Hip pain. Avascular necrosis. Comparison: Hip radiographs 06/12/2022. Technique: Multiplanar multisequence MRI of the left hip was performed without contrast. Findings: No acute or aggressive osseous abnormality or evidence of stress reaction. No femoral head or vascular process. Common hamstring tendon is intact. Iliopsoas and rectus femoris tendons are intact. Mild gluteus minimus tendinosis. Gluteus medius tendon is intact. No trochanteric bursal effusion. External rotators tendons are intact. Adductor compartment myotendinous structures are intact. The sciatic nerve is within normal limits in course and morphology. Nondisplaced anterior superior labral tear. Areas of high-grade partial thickness and full-thickness cartilage loss of the anterior superior femoral head and anterior superior acetabulum with degenerative subcortical cyst formation of the anterior superior acetabulum. Small left joint effusion containing a few tiny loose bodies. The visualized intrapelvic structures appear within normal limits. IMPRESSION: No femoral head avascular necrosis. Left hip osteoarthritis. Report reported and signed by Alex Lusi on 07/04/2022 1634 Normal [facility] [employer] XR finger RT 3rd digiton XR finger RT 3rd digit [facility] Main [address] [address] XRay Report Signed Patient: Evie Novoa MR#: [id number] 7 : 1975 Acct:[id number] Age/Sex: 46 / F ADM Date: 04/27/22 Loc: [facility] Room: Type: [facility] Attending Dr: Mimi Dangelo APRN Copies to: Mimi Dangelo APRN Ordering Provider: Mimi Dangelo APRN Date of Service: 04/27/22 XR/XR finger RT 3rd digit: RIGHT MIDDLE FINGER INJURY 3 viewsRIGHT 3rd digitplain film COMPARISON:None HISTORY:Injury involving the distal portion of the RIGHT middle finger. No fracture, dislocation or focal soft tissue abnormality seen. XR/XR finger RT 3rd digit IMPRESSION:No acute findings Impression dictated by: Adam Evans M.D.04/27/2022 1:46 PM Dictation Location: [place] [address] Transcribed By: [facility] 04/27/22 1346 Dictated By: Adam Evans DO 04/27/22 1345 Signed By: 04/27/[address] [facility] COVID/FLU RT-PCRon 2 SARS-CoV-2 (COVID-19) RNA WENDI+probe Ql (Unsp spec) Negative [employer] Other COVID/FLU RT-PCR Negative [facility] [employer] Other CARDIAC LISA 3-6on 2 CK [Catalytic activity/Vol] 83 U/L Normal 30-135 [facility] Comment on above: Performed By: #### C MREP #### [facility] [address] [place] [address] [address] Leticia Shay CK.MB [Mass/Vol] 1.29 ng/mL Normal <=2.37 [facility] Comment on above: Performed By: #### C MREP #### [facility] [address] [place], [place] [address] Dr. Leticia Shay HSTROP 8.1 pg/mL Normal 4.0-35.5 [facility] Comment on above: Result Comment: CUT- OFF POINTS HAVE BEEN ESTABLISHED BASED ON THE FOURTH UNIVERSAL DEFINITIONS OF MYOCARDIAL INFARCTION. THE UPPER REFERENCE LIMIT (URL) OF TROPONIN, DEFINED THE 99TH PERCENTILE OF cTnI DISTRIBUTION IN A REFERENCE POPULATION, HAS BEEN CONFIRMED THE DECISION THRESHOLD FOR [place] DIAGNOSIS. Performed By: #### C MREP #### [facility] [address] [place] [address] [address] Leticia Shay CARDIAC LISA ADMITon 022 CK [Catalytic activity/Vol] 85 U/L Normal 30-135 [facility] Comment on above: Performed By: #### B MP, CMADM #### [facility] [address] [place] [address] Dr. Leticia Shay CK.MB [Mass/Vol] 0.97 ng/mL Normal <=2.37 [facility] Comment on above: Performed By: #### B LEW, CMADM #### [facility] [address] [place] [address] Dr. Leticia Shay HSTROP 8.2 pg/mL Normal 4.0-35.5 [facility] Comment on above: Result Comment: CUT- OFF POINTS HAVE BEEN ESTABLISHED BASED ON THE FOURTH UNIVERSAL DEFINITIONS OF MYOCARDIAL INFARCTION. THE UPPER REFERENCE LIMIT (URL) OF TROPONIN, DEFINED THE 99TH PERCENTILE OF cTnI DISTRIBUTION IN A REFERENCE POPULATION, HAS BEEN CONFIRMED THE DECISION THRESHOLD FOR [place] DIAGNOSIS. Performed By: #### B LEW, CMADM #### [facility] [address] [place] [address] Dr. Leticia Shay JOSH 50.0 ng/mL Normal <=61.5 [facility] Comment on above: Performed By: #### B LEW, CMADM #### [facility] [address] [place] [address] Dr. Leticia Shay CBC AUTO DIFFon 09-05-2021 BASO # 0.0 103/ul Normal 0.0-0.1 [facility] Comment on above: Performed By: #### C BC #### [facility] [address] [place] [address] Dr. Leticia Shay Basophils/100 WBC (Bld) 0.4 % Normal 0.2-2.0 [facility] Comment on above: Performed By: #### C BC #### [facility] [address] [place] [address] Dr. Leticia Shay EO # 0.1 103/ul Normal 0.0-0.7 [facility] Comment on above: Performed By: #### C BC #### [facility] [address] [place] [address] Dr. Leticia Shay Eosinophils/100 WBC (Bld) 1.3 % Normal 0.9-7.0 [facility] Comment on above: Performed By: #### C BC #### [facility] [address] [place] [address] Dr. Leticia Shay Erythrocyte distribution width (RBC) [Ratio] 12.4 % Normal 11.0-15.0 [facility] Comment on above: Performed By: #### C BC #### [facility] [address] [place] [address] Dr. Leticia Shay Hematocrit (Bld) [Volume fraction] 35.0 % Critically low 36.0-48.0 [facility] Comment on above: Performed By: #### C BC #### [facility] [address] [place] [address] Dr. Leticia Shay Hemoglobin (Bld) [Mass/Vol] 11.7 g/dL Critically low 12.0-16.0 [facility] Comment on above: Performed By: #### C BC #### [facility] [address] [place] [address] Dr. Leticia Shay IG # 0.02 10e3/ul Normal 0.00-0.03 [facility] Comment on above: Performed By: #### C BC #### [facility] [address] [place] [address] Dr. Leticia Shay IG % 0.4 % Normal 0.0-0.5 [facility] Comment on above: Performed By: #### C BC #### [facility] [address] [place] [address] Dr. Leticia Shay LYMPH # 1.4 103/ul Normal 1.2-3.8 [facility] Comment on above: Performed By: #### C BC #### [facility] [address] [place] [address] Dr. Leticia Shay Lymphocytes/100 WBC (Bld) 26.6 % Normal 20.5-60.0 [facility] Comment on above: Performed By: #### C BC #### [facility] [address] [place] [address] Dr. Leticia Shay MANUAL DIFF REQ NO Normal [facility] Comment on above: Performed By: #### C BC #### [facility] [address] [place] [address] Dr. Leticia Shay MCH (RBC) [Entitic mass] 32.7 pg Normal 26.7-34.0 [facility] Comment on above: Performed By: #### C BC #### [facility] [address] [place] [address] Dr. Leticia Shay MCHC (RBC) [Mass/Vol] 33.4 g/dL Normal 29.9-35.2 [facility] Comment on above: Performed By: #### C BC #### [facility] [address] [place] [address] Dr. Leticia Shay MCV (RBC) [Entitic vol] 97.8 fL Normal 81.0-99.0 [facility] Comment on above: Performed By: #### C BC #### [facility] [address] [place] [address] Dr. Leticia Shay MONO # 0.4 103/ul Normal 0.3-0.8 [facility] Comment on above: Performed By: #### C BC #### [facility] [address] [place] [address] Dr. Leticia Shay Monocytes/100 WBC (Bld) 8.1 % Normal 1.7-12.0 [facility] Comment on above: Performed By: #### C BC #### [facility] [address] [place] [address] Dr. Leticia Shay NEUT # 3.4 103/ul Normal 1.4-6.5 [facility] Comment on above: Performed By: #### C BC #### [facility] [address] [place] [address] Dr. Leticia Shay Neutrophils/100 WBC (Bld) 63.2 % Normal 43.0-75.0 [facility] Comment on above: Performed By: #### C BC #### [facility] [address] [address] [address] Leticia Shay Platelet mean volume (Bld) [Entitic vol] 10.9 fL Normal 9.5-13.5 [facility] Comment on above: Performed By: #### C BC #### [facility] [address] [address] [address] Leticia Shay PLT 283 103/ul Normal 150-450 [facility] Comment on above: Performed By: #### C BC #### [facility] [address] [address] [address] Leticia Shay RBC 3.58 106/ul Critically low 4.20-5.40 [facility] Comment on above: Performed By: #### C BC #### [facility] [address] [address] [address] Leticia Shay WBC 5.3 103/ul Normal 4.0-11.0 [facility] Comment on above: Performed By: #### C BC #### [facility] [address] [address] [address] CSPINE WO CONon 2 CT CSPINE WO CON CT CERVICAL SPINE WI THOUT CONTRAST HISTORY: HEADACHE. COMPARISON: MRI cervical spine 04/24/2010. TECHNIQUE: Helical CT images were performed of the cervical spine without intravenous contrast. Dose reduction techniques were achieved by using automated exposure control and/or adjustment of mA and/or kV according to patient size and/or use of iterative reconstruction technique. FINDINGS: FIGURINE MAKER RADIOGRAPH: Unremarkable. MINERALIZATION: Normal. CRANIOCERVICAL AND ATLANTOAXIAL ARTICULATIONS: Intact with no traumatic subluxation. VERTEBRAL BODIES: Normal in height with no acute compression fracture. DISC SPACES: Normal in height with mild osteophytic spurring consistent with degenerative changes. ALIGNMENT: Normal. POSTERIOR ELEMENTS: Intact. ODONTOID PROCESS: Intact. VISUALIZED SKULL BASE: Unremarkable. SPINAL CANAL/NEURAL FORAMEN: Mild right-sided neural foraminal stenosis at C3-C4 and C4-C5 due to facet and uncovertebral hypertrophy. UPPER THORAX: Unremarkable. SOFT TISSUES OF THE NECK: Unremarkable. IMPRESSION: 1. No acute fracture or subluxation. 2. Mild degenerative changes. Electronically authenticated by: BASHIR HOLLY Date: 2021-09-04 23:30 Normal [facility] CT HEAD WO CONon 09-05-2021 CT HEAD WO CON EXAMINATION: CT HEAD WO CON, 09/04/2021 9:53 PM EDT HISTORY: HEADACHE. COMPARISON: CT head 07/17/2015, MRI brain 07/03/2016. TECHNIQUE: CT scan of the head was performed without IV contrast. CT dose reduction technique was used, including Automated Exposure Control. FINDINGS: BRAIN PARENCHYMA/CSF SPACES: Ventricles are normal in size for age. There is no hemorrhage, mass effect or midline shift. There are no other significant findings. PARANASAL SINUSES: Clear. SKULL BASE AND CALVARIUM: Normal. EXTRACRANIAL SOFT TISSUES: Normal. IMPRESSION: Normal noncontrast head CT. Electronically authenticated by: BASHIR HOLLY Date: 2021-09-04 23:31 Normal [facility] D-DIMERon 09-05-2021 D-DIMER <0.19 Normal 0.19-0.50 [facility] Comment on above: Performed By: #### D DIM #### [facility] [address] [address] [address] Leticia Shay D-DIMER COMMENTS SEE BELOW Normal [facility] Comment on above: Result Comment: Incr eases in D-Dimer concentration observed with thromboembolic events can be variable due to localization, size, and age of the thrombus. Therefore, a thromboembolic event cannot be diagnosed with certainty on the basis of the reference range. D-Dimers may also be elevated for a variety of disorders including: advanced age, , coronary disease, cancer, liver disease, infection, inflammation, hematoma, DIC, trauma, post-surgery, diabetes, thrombolytic or anticoagulant therapy, stress, and generalized hospitalization. Performed By: #### D DIM #### [facility] [address] [address] [address] Leticia Shay PROF CHEM 8 (BAS METB)on Anion gap [Moles/Vol] 8.3 mmol/L Normal [facility] Comment on above: Performed By: #### B MP, CMADM #### [facility] [address] [address] [address] Leticia Shay Calcium [Mass/Vol] 9.3 mg/dL Normal 8.4-10.2 [facility] Comment on above: Performed By: #### B LEW, CMADM #### [facility] [address] [place] [address] Dr. Leticia Shay Chloride [Moles/Vol] 105 mmol/L Normal 98-107 [facility] Comment on above: Performed By: #### B LEW, CMADM #### [facility] [address] [address] [address] Leticia Shay CO2 [Moles/Vol] 31.5 mmol/L Critically high 22.0-30.0 [facility] Comment on above: Performed By: #### B LEW, CMADM #### [facility] [address] [place] [address] Dr. Leticia Shay Creatinine [Mass/Vol] 0.81 mg/dL Normal 0.52-1.04 [facility] Comment on above: Performed By: #### B LEW, CMADM #### [facility] [address] [address] [address] Leticia Shay EGFR-AF BURMESE >60 Normal >=60 [facility] Comment on above: Performed By: #### B LEW, CMADM #### [facility] [address] [place] [address] Dr. Leticia Shay EGFR-NON AF BURMESE >60 Normal >=60 [facility] Comment on above: Performed By: #### B LEW, CMADM #### [facility] [address] [address] [address] Leticia Shay Glucose [Mass/Vol] 80 mg/dL Normal 74-106 [facility] Comment on above: Performed By: #### B LEW, CMADM #### [facility] [address] [address] [address] Leticia Shay Potassium [Moles/Vol] 3.8 mmol/L Normal 3.4-5.0 [facility] Comment on above: Performed By: #### B LEW, CMADM #### [facility] [address] [address] [address] Leticia Shay Sodium [Moles/Vol] 141 mmol/L Normal 137-145 [facility] Comment on above: Performed By: #### B MATT HACKETT #### [facility] [address] [address] [address] Leticia Shay Urea nitrogen [Mass/Vol] 15.0 mg/dL Normal 7.0-17.0 [facility] Comment on above: Performed By: #### B MATT HACKETT #### [facility] [address] [address] [address] Leticia Shay Urea nitrogen/Creatini ne [Mass ratio] 18.5 mg/mg Normal [facility] Comment on above: Performed By: #### B MATT HACKETT #### [facility] [address] [place] [address] Dr. Leticia Shay XR CHEST 1 Von 09-05-2021 XR CHEST 1 V EXAMINATION: XR CHES T 1 V, 09/04/2021 9:53 PM EDT HISTORY: SHORTNESS OF BREATH COMPARISON: Chest 09/23/2012 TECHNIQUE: Chest x-ray: One view. FINDINGS: SUPPORT APPARATUS/POST-SURGICAL CHANGES: Normal. CARDIOMEDIASTINAL SILHOUETTE: Normal. AIRWAYS/LUNGS: Normal. PLEURAL SPACES: No pleural effusion or pneumothorax. BONES AND SOFT TISSUES: No acute abnormality. IMPRESSION: Normal chest radiograph. Electronically authenticated by: BASHIR HOLLY Date: 2021-09-04 23:29 Normal [facility] XR HIP LT 2 3V W PELVISon XR HIP LT 2 3V W PELVIS XR HIP LT 2 3V W PELVIS: HISTORY: Pain. COMPARISON: CT abdomen pelvis 11.515.. TECHNIQUE: 3 radiographic view(s) obtained. FINDINGS: BONES/JOINT SPACES: There is no acute fracture or dislocation. Moderate degenerative changes of the bilateral hips. There are no other significant findings. SOFT TISSUES: Normal. IMPRESSION: 1. No acute osseous abnormality. 2. Moderate degenerative changes of the bilateral hips. Electronically authenticated by: BASHIR HOLLY Date: 2021-09-04 23:30 Normal [facility] Operative Reporton 8 Operative Report MR#: [id number] [facility] Pt. Name: Evie Novoa Room #: 0C Discharge Date: Birthdate: 1975 OPERATIVE REPORTDATE OF SURGERY: 05/11/2018SURGEON: Yohan Dumont M.D.BI DATA MODELER: Daniel Bass M.D.PREOPERATIVE DIAGNOSIS: Right medial epicondylitis.POSTOPERATI VE DIAGNOSIS: Right medial epicondylitis.OPERATIVE PROCEDURE: Right medial Nirschl procedure.DESCRIPTION OF PROCEDURE: Under regional anesthetic, the patient's rightupper extremity was prepped and draped for the proposed procedure.Tourniquet was applied to right proximal humerus, was inflated to 250 mmHgfollowing exsanguination of the limb by application of an Esmarch bandage.A posteromedial incision was made at the right elbow. This was performedunder 3.5 times loupe magnification. Hemostasis was obtained with the useof cautery. The flexor pronator fascia was delineated and then an incisionwas made along the lines of the tendons. This allowed retraction of theoverlying tendons exposing the deep tendon.Noted was that there was some fibrofatty changes to the tendon origin aswell as an associated bone spur at this level. For the most part, thetendons appeared healthy. The fibrofatty tissue was excised and Nirschlscratch test was used to debride any remaining abnormal tissues. The bonyprominence was also debrided with the use of a rongeur.Wound irrigated with normal saline solution and closed the fascia with a2-0 Vicryl established in a running fashion followed by closure ofsubcutaneous tissue with 3-0 Vicryl and closure of skin with a 4-0 Biosynestablished in a running subcuticular fashion. Wound was reinforced withSteri-Strips and a sterile dressing was applied. There were nocomplications. The patient was returned to recovery room in stablecondition.Sasha arreaga Signed by:Yohan Dumont M.D. 05/12/2018 10:04 A Yohan Dumont M.D.Date Dict: 05/11/2018/11:50 Denisha/Yohan Dumont M.D.Date Trans: 05/11/2018 09:29 P/[id number] cc: Jean Carlos Izquierdo M.D. [address] [facility] [address] Morris Castro DO [address] [facility] [address] Normal [facility] POC GLUCOSE LABon 05-11-2018 Glucose mass conc 84 mg/dL Normal 70-100 [facility] Comment on above: Performed By: #### [id number] ####[facility] [facility].[address] POC URINE PREGNANCYon 2017 HCG.beta subunit ( test) Ql (U) Negative Normal NEGATIVE [facility] Comment on above: Result Comment: Perf ormed in PACU Performed By: #### [id number] ####[facility] [facility].[address] CNOVon 01-23-2017 CNOV Office Visit (KIT) EVIE NOVOA ([id number]) 1975 [facility] Time Provider Department01/23/17 8:40 AM JONATHON RECINOS During your visit today, we recorded the following information about you: Pulse Blood pressure Weight Height 84/minute 111/76 95.3 kg 1.727 Tyson Recinos MD 01/30/2017 4:45 PM SignedOTONEUROLOGY CONSULTATIONReferral source: Self (Evaluation)Chief Complaint:Imbalance / FallsDizziness: Lightheadedness (over the past 2-4 weeks)HeadacheNeck: Pain / lack of mobilityRUE tinglingFeels like she's going to black out when she lays on the back of her neck##################### ######################### ######################### ######################### ######################### ###########Impressions: Issues of dizziness, imbalance, headache, neck pain and occipitalneuralgia. Likely overlap between a peripheral vestibular disturbance, abnormalupper cervical spine biomechanics, migraine, a tendency toward orthostaticintolerance and possible occipital nerve irritation on the right. Chronic dailyheadache with elements of chronic migraine, cervicogenic headache and occipitalnerve irritation on the right.Disorders include: Possible peripheral vestibular disturbance on the left(neurolabyrinthitis). Patient manifests an asymmetry of upper cervical spinebiomechanics. This may be the consequence of a peripheral vestibular disorderand arthritis. This may underlie issues of cervicalgia and may provide asubstrate for headache. Cervical spine issues may be complicated by occipitalnerve irritation on the right. All of this may have exacerbated a tendencytoward migraine with a component of visual-motion sensitivity. Gait is unsteadyand likely related to the vestibular syndromeRecommendations/P ashley:Neck physical therapy: consider further ptMigraine:- Start magnesium oxide 400mg/day as a migraine supplement.- Handout regarding migraine and diet was given to the patient.- Abortive treatment of headache: reduce iburpoofen as toleartesFurther testing: none at this timeConsider repeat cervical MRIConsider comprehensive audiometryMedications:Con bryce Lyrica. Consider increasing the doseC1-3 inj per pain anesthesia (already scheduled)Consider greater occipital nerve trigger point injections on the rightFollow-up: PRN###################### ######################### ######################### ######################### ######################### ##########History:Precedi ng URI symptoms: NoOnset of symptoms: In usual state of health until about 2 yrs ago.3 yrs ago - started to experience daily headachesWalking from the bathroom to the bed. Did not trip. Was dark. Fell onto herface - rug barn; no LOCStarted to experience mild, intermittent imbalance.Gradual worsening over timeNow:Imbalance:Constan t / whenever moving faster. Can happen when just standing up or takingher first stepmoderateNo clear correlation with fatigue.Worse when more stressedWorse in the afternoon / less in the amFalls:Started about 2 yrsCatches herself - at least 1x/day - R/LNo recent falls (last was october 2016 - onto the counter - not the floor)Dizziness: Lightheadedness (over the past 2-4 weeks)On/offLasting secondsNo clear triggersHeadache (see JAMA section)################# ######################### ########################V estibular: Dizziness: (see hpi) Imbalance: see hpi Veering: R/L Falls: See hpiHearing: ANDquot;not very goodANDquot; - hard to discern what people are saying x1.5 to 2 yrsWorse on the left. Gradual declineTinnitus: intermittent AU - Ringing - over the past 6 monthsMusculosketal Ear: none Neck:Neck: Pain / lack of mobilityFeels like she's going to black out when she lays on the back of her head -since october / more noticeable over the summerNeeds to lay on her sideHeadaches:TeensPrior to age 40:FrontalSharpThrobbingN o n/v/p/pANDlt; 1 day4x/weekAge 38Daily headachesMore severe over timeNow:Base of skull / frontalSharpThrobbing+-N (10% of the time)phonoDaily / near constant - not present for a couple of hours with meds - [id number] - 2x/day, daily x 6 months Visual Features: Dots/Spots, Bright - with a change in headache (since age38) - 1/month Aggravators: Hunger (started in the past), Weather Changes (after age 38),Scents/Smells (since 2004), Stress and Menstrual periods (before 2007 - uterineablation) Alleviators: Rest, Sleep and OTC Meds and relpax (once every 3 months -w/ benefit though makes her tired) Associated Vestibular Symptoms: noCoffee - 1/2 pot per day - since college################## ######################### #######################Re view of Systems:General: Energy: not good / always tired x yrs / worse over the past 1.5 to 2 yrs Sleep: abnormal - not sure why. X yrs Insomnia - Yes Frequent awakenings - YesWeakness:Right hand - poor deputy k 9 - 1x/day x 3-4 yrs - more aware of itSensory:R hand tingling (fingers / thumb) - on/off x 3-4 yrsGI - Bowel dysfunction: constipationGU - Bladder dysfunction: frequencyVisual dysfunction: normalSwallow problems: normalCardiac: Chest pain: noOrthstatic Intolerance: LOC - x1 - age 10 - standing for about 5 min at an event - presyncope andthen LOC x seconds Presyncope - see hpi; frequent - old issue / whole life - mainly whenstanding still Sens to hot showers - none Palp - nonePulmonary: Dyspnea on Exertion: noneSkin: Rashes: NonePsychiatry: Anxiety / Depression:Both - on meds, better over the past 1 yr - not sure why###################### ######################### ###################The diagnostic work-up for this problem thus far has included: Consultation Dx Date LocationPCP yENT nNeuro y ANDquot;central vestibular dysfunctionANDquot;CardsP ain Y C4 through C6 nerve block - last Thursday - helped a little withright shoulder blade x yrs. Less right shoulder pain.Less right hand numbness / tinglingGI############### #######################Te sting Result Date LocationHead CT yMRI y 07/03/16 normal (per my review)Cervical MRI y 08/03/16 Poor quality. No clear disc disease (per my review)Audio nVNG Y (no calorics) - ANDquot;normalANDquot;?EM G/NCV 07/14/2016 - lower extrem ANDquot;normalANDquot; (per patient)RUE EMG/NCV y 2009 ANDquot;normalANDquot; (per neuro notes)################### ################Treatment for current illness:Medications:Ibupr ofenPercocet - 1/2 tab - 1/week over the past monthrelpax PRNlyrica - since 2011 - tolerates this. W/ benefit for painProcedures/Surgery:PT Other Neck - 2 attempts in same facility - neck turn - instant pain right eyebrowto right ear to RUE.Second attempt - u/s + stim x 8 weeks - increase in symptoms - [facility] - w/ above neckChiropractic manipulation - no####################### ######################### ##################Past Medical History: Head / Neck trauma: No HTN: No DM: No Elevated cholesterol: No Thyroid disease: hypothyroid GERD: NoPAST SURGICAL [id number]: BREAST [id number]: [id number]: PAST SURGICAL HISTORY OF Left Comment: knee arthroscopyPAST SURGICAL [id number]: BREAST [id number]: [id number]: PAST SURGICAL HISTORY OF Left Comment: knee arthroscopyPAST MEDICAL HISTORYDiagnosis Date- ADD (attention deficit disorder)- Anxiety and depression- Fibromyalgia 2010- Hypothyroid- Osteoarthritis 2010 swelling in knuckles / knees. 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 worked: Current / summer vacation Tobacco Use: d/c 2 weeks ago - 1/2 ppd x 13 yrs Alcohol Use: No (sobriety x 3 yrs)Family history significant for: Hearing problems: No Dizziness: No Headache: Daughters x 2 NV: No Stroke: mother Similar disorders:############### ######################### ######################### #Physical Examination: Comprehensive neurological and otological examinations,including musculoskeletal examination of the cervical spine revealed thefollowing findings:Vitals: BP 111/76 (BP Site: Left Arm, BP Position: Sitting, BP Cuff Size:Regular Adult) Pulse 84 Ht 172.7 cm (5' 8ANDquot;) Wt 95.3 kg (210 lb) BMI 31.93 kg/n6Vuwrqkp: Well developed. Well nourished. No acute distress.Pain Behaviors: no pain behaviors observedCarotid examination was normal.General cardiac examination was normal.Mental status examination: Alert and Oriented to time, place and person.Language: fluent speech(limited evaluation)Cranial Nerve exam:Ophthalmologic: Visual felipe were normal. Fundoscopic exam was normal.Pupils were symmetric and reactive to light. Eye movements: normal, smooth pursuits, no nystagmus. Symptoms associated w/ eye movements: C/o lightheadedness with gaze to theleft; this improved with manual cervical tractionOtological examination: Hernandez: lateralized to the right on the scalp Rinne: normal (ACANDgt;BC) Tympanic membranes: normal Finger rub: reduced on the left Response to 256 Hz tuning fork: normal Recruitment: left hyperacusisFacial Strength: symmetricFacial Sensation: Right Left V1 (scalp) Normal Normal V1 Normal Normal V2 Normal Normal V3 Normal Normal Ear (sup.) Normal Reduced Left RightGON tender none moderateParaC2 tender mild mild to moderatePost. Vertex Normal NormalNormal palatal elevation.Tongue midline. Right LeftOral sensation: Ant Tongue - - Post Tongue dec - Post PharynxCervical spine examination: Position: neutral Flexion: normal and painless Lateral C1 process tenderness: tender bilaterally - R(sig)ANDgt;L Upper Cervical Rotation: Reduced right Sidebend: Reduced left Total Cervical Rotation: Reduced right C1 malrotation: LeftNeck Vibration Testing: Right LeftSuboccipital - -Masseter Numb sensation + woosySCM + -Motor Exam: Tone: Normal with no atrophy or fasciculations Tremor : None Pronator Drift: NoneNormal shoulder shrug.Strength (out of 5): Right LeftHand Intrins 5 55th digit abd 5 5Wrist ext 5 5Shoulder abd. 5 5Hip flex 5 5Knee ext 5 5Ankle Dorsifl 5 5Shoulder Flex 5 5DTR's (out of 4): Right LeftBR 2+ 2+BJ 1+ 1+TJ 2+ 1+KJ 2+ 2+AJ 1+ 1+Plantar resp. not tested not testedSensory Exam: Gross UE to PP: normal Gross LE to PP: N/TCoordination examination: Gekvob-nz-mgvq testing was normal bilaterally.Kfne-hg-pmnc testing was normal bilaterally.Postural stability: Romberg: normalGait examination: Usual gait: Moderate base. stable Heel walk: normal Toe walk: normal Tandem (Forward): somewhat unsteady Tandem (Reverse): somewhat unsteady################# ######################### ########################H A 8, 7 w/ cervical traction################# ######################### ########################T he patient was personally seen and examined by myself.Jonathon Recinos MDOtoneurology / NeurologyCenter for Headache and PainNeurological InstituteAdena Health SystemT33cc: Jean Carlos Holland MD *(sent via [employer] - to esc*)(Results of consultation to be transmitted via electronic medical record forthose providers who practice within [facility] or with access to [employer] via [employer], or via letter)Total time of 78 minutes was spent with the patient regarding the above.Referring Provider: SELF [[id number]]Allergies As of Date: 01/23/2017(No Known Allergies)Date Reviewed: 01/23/2017Reviewed by: Jonathon Recinos - Fully AssessedReason for Visit: Balance [140] Headache [52] Neck Pain [135]Reason For Visit History RecordedPrimary Visit Diagnosis:Imbalance [R26.89] Other Visit Diagnoses: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] Chronic migraine without aura, with intractable migraine, so stated, with status migrainosus [G43.711] Labyrinthitis of left ear [H83.02] Occipital neuralgia of right side [M54.81] 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 [M50.120] Neck pain [M54.2]Order(s):pregabali n (LYRICA) 150 mg capsuleTake 1 capsule by mouth three times daily.Disp: Rfl: SUMAtriptan (IMITREX) 50 mg tabletTake 1 tablet by mouth as needed.Disp: 9 tabletRfl: 3Prescriptions as of 01/23/2017 Sig: BUPROPION XL 300 MG 24 HR TAB Take 300 mg by mouth once theresa* DEXTROAMPHETAMINE-AMPHETA MINE* Take 20 mg by mouth twice theresa* DULOXETINE 60 MG CAPSULE,RAMIRO* Take 60 mg by mouth twice theresa* IBUPROFEN 800 MG TABLET Take 800 mg by mouth every 6 * LEVOTHYROXINE 100 MCG TABLET Take 100 mcg by mouth daily b* TIZANIDINE 4 MG CAPSULE Take 4 mg by mouth once daily. PREGABALIN 150 MG CAPSULE Take 1 capsule by mouth three* SUMATRIPTAN 50 MG TABLET Take 1 tablet by mouth as nee*Problem List As Of Date: 01/23/2017(None)Prescript ions ordered this encounter Disp Refills Start End PREGABALIN 150 MG CAPSULE 01/23/2017 Class: Med Update Route: ORAL Sig: Take 1 capsule by mouth three times daily. SUMATRIPTAN 50 MG TABLET 9 ta* 3 01/23/2017 Route: ORAL Sig: Take 1 tablet by mouth as needed.Follow-up and Disposition History RecordedEncounter Number: [id number] Status:Closed by JONATHON RECINOS MD on 01/30/17 [facility] PROGRESSon 01-23-2017 PROGRESS HNO ID: [id number] thor: Jonathon Markervice: (none)Author Type: PhysicianType: Progress NotesFiled: 01/30/2017 4:45 PMNote Text:OTONEUROLOGY CONSULTATIONReferral source: Self (Evaluation)Chief Complaint:Imbalance / FallsDizziness: Lightheadedness (over the past 2-4 weeks)HeadacheNeck: Pain / lack of mobilityRUE tinglingFeels like she's going to black out when she lays on the back of her neck##################### ######################### ######################### ######################### ######################### ###########Impressions: Issues of dizziness, imbalance, headache, neck pain andoccipital neuralgia. Likely overlap between a peripheral vestibulardisturbance, abnormal upper cervical spine biomechanics, migraine, atendency toward orthostatic intolerance and possible occipital nerveirritation on the right. Chronic daily headache with elements of chronicmigraine, cervicogenic headache and occipital nerve irritation on theright.Disorders include: Possible peripheral vestibular disturbance on the left(neurolabyrinthitis). Patient manifests an asymmetry of upper cervicalspine biomechanics. This may be the consequence of a peripheral vestibulardisorder and arthritis. This may underlie issues of cervicalgia and mayprovide a substrate for headache. Cervical spine issues may be complicatedby occipital nerve irritation on the right. All of this may haveexacerbated a tendency toward migraine with a component of visual-motionsensitivity. Gait is unsteady and likely related to the vestibularsyndromeRecomme ndations/Plan:Neck physical therapy: consider further ptMigraine:- Start magnesium oxide 400mg/day as a migraine supplement.- Handout regarding migraine and diet was given to the patient.- Abortive treatment of headache: reduce iburpoofen as toleartesFurther testing: none at this timeConsider repeat cervical MRIConsider comprehensive audiometryMedications:Con bryce Moralez. Consider increasing the doseC1-3 inj per pain anesthesia (already scheduled)Consider greater occipital nerve trigger point injections on the rightFollow-up: PRN###################### ######################### ######################### ######################### ######################### ##########History:Precedi ng URI symptoms: NoOnset of symptoms: In usual state of health until about 2 yrs ago.3 yrs ago - started to experience daily headachesWalking from the bathroom to the bed. Did not trip. Was dark. Fell ontoher face - rug barn; no LOCStarted to experience mild, intermittent imbalance.Gradual worsening over timeNow:Imbalance:Constan t / whenever moving faster. Can happen when just standing up ortaking her first stepmoderateNo clear correlation with fatigue.Worse when more stressedWorse in the afternoon / less in the amFalls:Started about 2 yrsCatches herself - at least 1x/day - R/LNo recent falls (last was october 2016 - onto the counter - not the floor)Dizziness: Lightheadedness (over the past 2-4 weeks)On/offLasting secondsNo clear triggersHeadache (see JAMA section)################# ######################### ########################V estibular: Dizziness: (see hpi) Imbalance: see hpi Veering: R/L Falls: See hpiHearing: not very good - hard to discern what people are saying x 1.5 to2 yrsWorse on the left. Gradual declineTinnitus: intermittent AU - Ringing - over the past 6 monthsMusculosketal Ear: none Neck:Neck: Pain / lack of mobilityFeels like she's going to black out when she lays on the back of her head- since may / more noticeable over the summerNeeds to lay on her sideHeadaches:TeensPrior to age 40:FrontalSharpThrobbingN o n/v/p/p< 1 day4x/weekAge 38Daily headachesMore severe over timeNow:Base of skull / frontalSharpThrobbing+-N (10% of the time)phonoDaily / near constant - not present for a couple of hours with meds -ibuprofen 800mg - 2x/day, daily x 6 months Visual Features: Dots/Spots, Bright - with a change in headache(since age 38) - 1/month Aggravators: Hunger (started in the past), Weather Changes (after age38), Scents/Smells (since 2004), Stress and Menstrual periods (before 2007- uterine ablation) Alleviators: Rest, Sleep and OTC Meds and relpax (once every 3months - w/ benefit though makes her tired) Associated Vestibular Symptoms: noCoffee - 1/2 pot per day - since college################## ######################### #######################Re view of Systems:General: Energy: not good / always tired x yrs / worse over the past 1.5 to 2yrs Sleep: abnormal - not sure why. X yrs Insomnia - Yes Frequent awakenings - YesWeakness:Right hand - poor deputy k 9 - 1x/day x 3-4 yrs - more aware of itSensory:R hand tingling (fingers / thumb) - on/off x 3-4 yrsGI - Bowel dysfunction: constipationGU - Bladder dysfunction: frequencyVisual dysfunction: normalSwallow problems: normalCardiac: Chest pain: noOrthstatic Intolerance: LOC - x1 - age 10 - standing for about 5 min at an event - presyncopeand then LOC x seconds Presyncope - see hpi; frequent - old issue / whole life - mainly whenstanding still Sens to hot showers - none Palp - nonePulmonary: Dyspnea on Exertion: noneSkin: Rashes: NonePsychiatry: Anxiety / Depression:Both - on meds, better over the past 1 yr - not sure why###################### ######################### ###################The diagnostic work-up for this problem thus far has included: Consultation Dx Date LocationPCP yENT nNeuro y central vestibular dysfunction CardsPain Y C4 through C6 nerve block - last Thursday - helped a littlewith right shoulder blade x yrs. Less right shoulder pain.Less right hand numbness / tinglingGI############### #######################Te sting Result Date LocationHead CT yMRI y 07/03/16 normal (per my review)Cervical MRI y 08/03/16 Poor quality. No clear disc disease (per [place])Audio nVNG Y (no calorics) - normal ?EMG/NCV 07/14/2016 - lower extrem normal (per patient)RUE EMG/NCV y 2009 normal (per neuro notes)################### ################Treatment for current illness:Medications:Ibupr ofenPercocet - 1/2 tab - 1/week over the past monthrelpax PRNlyrica - since 2011 - tolerates this. W/ benefit for painProcedures/Surgery:PT Other Neck - 2 attempts in same facility - neck turn - instant pain righteyebrow to right ear to RUE.Second attempt - u/s + stim x 8 weeks - [facility] in [facility] - w/ above neckChiropractic manipulation - no####################### ######################### ##################Past Medical History: Head / Neck trauma: No HTN: No DM: No Elevated cholesterol: No Thyroid disease: hypothyroid GERD: NoPAST SURGICAL [id number]: BREAST [id number]: [id number]: PAST SURGICAL HISTORY OF Left Comment: knee arthroscopyPAST SURGICAL [id number]: BREAST [id number]: [id number]: PAST SURGICAL HISTORY OF Left Comment: knee arthroscopyPAST MEDICAL HISTORYDiagnosis Date- ADD (attention deficit disorder)- Anxiety and depression- Fibromyalgia 2010- Hypothyroid- Osteoarthritis 2010 swelling in knuckles / knees. 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 worked: Current / summer vacation Tobacco Use: d/c 2 weeks ago - 1/2 ppd x 13 yrs Alcohol Use: No (sobriety x 3 yrs)Family history significant for: Hearing problems: No Dizziness: No Headache: Daughters x 2 NV: No Stroke: mother Similar disorders:############### ######################### ######################### #Physical Examination: Comprehensive neurological and otologicalexaminations, including musculoskeletal examination of the cervical spinerevealed the following findings:Vitals: BP 111/76 (BP Site: Left Arm, BP Position: Sitting, BP Cuff Size:Regular Adult) Pulse 84 Ht 172.7 cm (5' 8 ) Wt 95.3 kg (210 lb) BMI 31.93 kg/i7Owdrkij: Well developed. Well nourished. No acute distress.Pain Behaviors: no pain behaviors observedCarotid examination was normal.General cardiac examination was normal.Mental status examination: Alert and Oriented to time, place and person.Language: fluent speech(limited evaluation)Cranial Nerve exam:Ophthalmologic: Visual felipe were normal. Fundoscopic exam was normal.Pupils were symmetric and reactive to light. Eye movements: normal, smooth pursuits, no nystagmus. Symptoms associated w/ eye movements: C/o lightheadedness with gaze tothe left; this improved with manual cervical tractionOtological examination: Hernandez: lateralized to the right on the scalp Rinne: normal (AC>BC) Tympanic membranes: normal Finger rub: reduced on the left Response to 256 Hz tuning fork: normal Recruitment: left hyperacusisFacial Strength: symmetricFacial Sensation: Right Left V1 (scalp) Normal Normal V1 Normal Normal V2 Normal Normal V3 Normal Normal Ear (sup.) Normal Reduced Left RightGON tender none moderateParaC2 tender mild mild to moderatePost. Vertex Normal NormalNormal palatal elevation.Tongue midline. Right LeftOral sensation: Ant Tongue - - Post Tongue dec - Post PharynxCervical spine examination: Position: neutral Flexion: normal and painless Lateral C1 process tenderness: tender bilaterally - R(sig)>L Upper Cervical Rotation: Reduced right Sidebend: Reduced left Total Cervical Rotation: Reduced right C1 malrotation: LeftNeck Vibration Testing: Right LeftSuboccipital - -Masseter Numb sensation + woosySCM + -Motor Exam: Tone: Normal with no atrophy or fasciculations Tremor : None Pronator Drift: NoneNormal shoulder shrug.Strength (out of 5): Right LeftHand Intrins 5 55th digit abd 5 5Wrist ext 5 5Shoulder abd. 5 5Hip flex 5 5Knee ext 5 5Ankle Dorsifl 5 5Shoulder Flex 5 5DTR's (out of 4): Right LeftBR 2+ 2+BJ 1+ 1+TJ 2+ 1+KJ 2+ 2+AJ 1+ 1+Plantar resp. not tested not testedSensory Exam: Gross UE to PP: normal Gross LE to PP: N/TCoordination examination: Hkjfea-rf-qxge testing was normal bilaterally.Yief-oj-avml testing was normal bilaterally.Postural stability: Romberg: normalGait examination: Usual gait: Moderate base. stable Heel walk: normal Toe walk: normal Tandem (Forward): somewhat unsteady Tandem (Reverse): somewhat unsteady################# ######################### ########################H A 8, 7 w/ cervical traction################# ######################### ########################T he patient was personally seen and examined by myself.Jonathon Recinos MDOtoneurology / NeurologyCenter for Headache and PainNeurological InstituteAdena Health SystemT33cc: Jean Carlos Holland MD *(sent via [employer] - to [facility]*)(Results of consultation to be transmitted via electronic medical recordfor those providers who practice within [facility] or with access to [employer] MD Connect, or via letter)Total time of 78 minutes was spent with the patient regarding the above. Normal [facility] Vital Signs Date Time Vital Sign Value Performing Clinician Facility 12-30-2023 09:03-0400 Blood Pressure Location [employer] [facility] 12-30-2023 09:03-0400 Diastolic blood pressure 77 mm[Hg] Trena Lue [facility] 12-30-2023 09:03-0400 Heart rate 68 /min Trena Lue [facility] 12-30-2023 09:03-0400 Systolic blood pressure 106 mm[Hg] Trena Lue [facility] 12-01-2023 16:46-0400 Body height 167.64 cm [facility] 12-01-2023 16:46-0400 Body mass index (BMI) [Ratio] 33.6 kg/m2 [facility] 12-01-2023 16:46-0400 Body temperature 97.5 [degF] [facility] 12-01-2023 16:46-0400 Body weight 94.51 kg [facility] 12-01-2023 16:46-0400 Diastolic blood pressure 68 mm[Hg] [facility] 12-01-2023 16:46-0400 Heart rate 81 /min [facility] 12-01-2023 16:46-0400 Respiratory rate 18 /min [facility] 12-01-2023 16:46-0400 SaO2% (BldA) [Mass fraction] 97 % [facility] 12-01-2023 16:46-0400 Systolic blood pressure 99 mm[Hg] [facility] 08-11-2023 13:12-0500 Body mass index (BMI) [Ratio] 31.47 kg/m2 Danielle Gregg CABLE ENGINEER [employer] Work Phone: [facility] 08-11-2023 13:12-0500 Body temperature 98.49 [degF] Danielle Beaner CABLE ENGINEER [employer] Work Phone: [facility] 08-11-2023 13:12-0500 Body weight 93.89 kg Danielle Gregg CABLE ENGINEER [employer] Work Phone: [facility] 08-11-2023 13:12-0500 Diastolic blood pressure 68 mm[Hg] Danielle Gregg CABLE ENGINEER [employer] Work Phone: [facility] 08-11-2023 13:12-0500 Heart rate 83 /min Danielel Gregg CABLE ENGINEER [employer] Work Phone: [facility] 08-11-2023 13:12-0500 Respiratory rate 18 /min Danielle Beaner CABLE ENGINEER [employer] Work Phone: [facility] 08-11-2023 13:12-0500 SaO2% (BldA) [Mass fraction] 98 % Danielle Gregg APRN[employer] Work Phone: [employer] 08-11-2023 13:12-0500 Systolic blood pressure 122 mm[Hg] Danielle Gregg CABLE ENGINEER [employer] Work Phone: [employer] 08-11-2023 08:40-0500 Body height 172.7 cm Marquita Montero SET Work Phone: [employer] 08-11-2023 08:40-0500 Body mass index (BMI) [Ratio] 31.38 kg/m2 Marquita Montero SET Work Phone: [employer] 08-11-2023 08:40-0500 Body temperature 98.4 [degF] Marquita Montero SET Work Phone: [employer] 08-11-2023 08:40-0500 Body weight 93.62 kg Marquita Montero SET Work Phone: [employer] 08-11-2023 08:40-0500 Respiratory rate 17 /min Marquita Montero SET Work Phone: [employer] 10-01-2022 13:05-0400 Body height 172.72 cm Irma Colvin Other [employer] Other 10-01-2022 13:05-0400 Body mass index (BMI) [Ratio] 27.52 kg/m2 Irma Colvin Other [employer] Other 10-01-2022 13:05-0400 Body temperature 98.1 [degF] Irma Colvin Other [employer] Other 10-01-2022 13:05-0400 Body weight 82.1 kg Irma Colvin Other [employer] Other 10-01-2022 13:05-0400 Respiratory rate 18 /min Irma Colvin Other [employer] Other 10-01-2022 13:05-0400 SaO2% (BldA) [Mass fraction] 98 % Irma Colvin Other [employer] Other 03-06-2022 13:35-0400 Body height 172.72 cm Mimi Dangelo Other [employer] Other 03-06-2022 13:35-0400 Body mass index (BMI) [Ratio] 27.82 kg/m2 Mimi Dangelo Other [employer] Other 03-06-2022 13:35-0400 Body temperature 97.8 [degF] Mimi Dangelo Other [employer] Other 03-06-2022 13:35-0400 Body weight 83.01 kg Mimi Dangelo Other [employer] Other 03-06-2022 13:35-0400 Respiratory rate 18 /min Mimi Dangelo Other [employer] Other 03-06-2022 13:35-0400 SaO2% (BldA) [Mass fraction] 98 % Mimi Dangelo Other [employer] Other 12-26-2021 11:55-0400 Body height 172.72 cm Seema Banerjee Other [employer] Other 12-26-2021 11:55-0400 Body mass index (BMI) [Ratio] 30.41 kg/m2 Seema Banerjee Other [employer] Other 12-26-2021 11:55-0400 Body temperature 98 [degF] Seema Banerjee Other [employer] Other 12-26-2021 11:55-0400 Body weight 90.72 kg Seema Banerjee Other [employer] Other 12-26-2021 11:55-0400 Diastolic blood pressure 70 mm[Hg] Seema Banerjee Other [employer] Other 12-26-2021 11:55-0400 Respiratory rate 18 /min Seema Banerjee Other [employer] Other 12-26-2021 11:55-0400 SaO2% (BldA) [Mass fraction] 99 % Seema Banerjee Other [employer] Other 12-26-2021 11:55-0400 Systolic blood pressure 102 mm[Hg] Seema Banerjee Other [employer] Other 10-12-2021 14:45-0400 Body height 172.72 cm Seema Banerjee Other [employer] Other 10-12-2021 14:45-0400 Body mass index (BMI) [Ratio] 30.41 kg/m2 Seema Banerjee Other [employer] Other 10-12-2021 14:45-0400 Body temperature 97 [degF] Seema Banerjee Other [employer] Other 10-12-2021 14:45-0400 Body weight 90.72 kg Seema Banerjee Other [employer] Other 10-12-2021 14:45-0400 Diastolic blood pressure 78 mm[Hg] Seema Banerjee Other [employer] Other 10-12-2021 14:45-0400 Respiratory rate 20 /min Seema Banerjee Other [employer] Other 10-12-2021 14:45-0400 SaO2% (BldA) [Mass fraction] 99 % Seema Banerjee Other [employer] Other 10-12-2021 14:45-0400 Systolic blood pressure 116 mm[Hg] Seema Banerjee Other [employer] Other Encounters Encounter Date Encounter Type Care Provider Facility Start: 12-30-2023 ambulatory Trena Dolan Facility:[facility] Start: 12-30-2023 End: 12-30-2023 Patient encounter procedure Trena Dolan [facility] Start: 12-28-2023 End: 12-28-2023 ambulatory LEE MONTANA Not Available Start: 12-22-2023 End: 12-22-2023 ambulatory ANNIE FRAZIER [facility] Start: 12-14-2023 End: 12-14-2023 ambulatory JEAN CARLOS IZQUIERDO [facility] Start: 12-01-2023 End: 12-01-2023 ambulatory [facility] Work Phone: Start: 12-01-2023 End: 12-01-2023 Patient encounter procedure [facility] Work Phone: Start: 11-27-2023 End: 11-27-2023 ambulatory TRENA DOLAN [facility] Start: 11-27-2023 End: 11-27-2023 ambulatory JEAN CARLOS [facility] Start: 11-18-2023 End: 11-18-2023 ambulatory MORRIS CHARLTON Not Available Start: 11-12-2023 End: 11-12-2023 ambulatory JEAN CARLOS [facility] Start: 11-05-2023 End: 11-05-2023 ambulatory CHAITANYA VENEGAS Not Available Start: 11-03-2023 End: 11-03-2023 ambulatory JEAN CARLOS [facility] Start: 10-27-2023 End: 10-30-2023 ambulatory BERLIN CORDERO Not Available Start: 10-22-2023 End: 10-23-2023 ambulatory IRMA HUMPHRIES Not Available Start: 10-21-2023 End: 10-21-2023 ambulatory [facility] Start: 10-13-2023 End: 10-14-2023 ambulatory IRMA HUMPHRIES Not Available Start: 10-06-2023 End: 10-07-2023 ambulatory BERLIN CORDERO Not Available Start: 10-05-2023 End: 10-05-2023 ambulatory [facility] Start: 10-05-2023 End: 10-05-2023 ambulatory JUDI Potts DIGNA Not Available Start: 09-30-2023 End: 09-30-2023 ambulatory [facility] Start: 09-25-2023 Refill Jean Carlos bingham MD [facility] Start: 09-24-2023 End: 09-24-2023 ambulatory BERLIN CORDERO Not Available Start: 09-22-2023 End: 09-24-2023 ambulatory CHAITANYA VENEGAS Not Available Start: 09-11-2023 End: 09-11-2023 Clinical Support Rakel DODGE Work Phone: [facility] Start: 09-07-2023 Refill Saranya Presley [facility] Comment on above: Intractable migraine without aura and without status migrainosus Start: 09-06-2023 Refill Michael jama MD Work Phone: [facility] Comment on above: Dysphagia, unspecifi ed type; Gastroesophageal reflux disease, unspecified whether esophagitis present Start: 08-23-2023 Refill Danielle shabazz CABLE ENG[employer] [facility] Start: 08-11-2023 End: 08-11-2023 Clinical Support Yanni DODGE Work Phone: [facility] Comment on above: Dizziness (Primary D x); Hearing exam without abnormal findings Intractable migraine without aura and without status migrainosus Start: 08-11-2023 End: 08-11-2023 Office outpatient visit 15 minutes Danielle Gregg CABLE ENG[employer] Work Phone: [facility] Comment on above: Acute non-recurrent maxillary sinusitis (Primary Dx); MDD (major depressive disorder), single episode, moderate (CMS-HCC); Severe major depression without psychotic features (CMS-HCC); Congested nose Start: 08-11-2023 End: 08-11-2023 Patient encounter procedure Marquita Montero DO Work Phone: [facility] Comment on above: Perceptive hearing l oss, one side more than other (Primary Dx); DNS (deviated nasal septum) Start: 08-11-2023 End: 08-11-2023 Patient encounter status Yanni DODGE Work Phone: [facility] Start: 07-22-2023 End: 07-22-2023 ambulatory Trena M. Lue Facility:[facility] Start: 07-08-2023 End: 07-08-2023 ambulatory JUDI SAWYER Not Available Start: 07-03-2023 ambulatory Trena Lue [facility] Start: 06-25-2023 ambulatory Trena Lue Facility:[facility] Start: 06-19-2023 Telephone encounter Jean Carlos Holland MD Work Phone: [facility] Start: 06-16-2023 Telephone encounter Michael osorio MD Work Phone: [facility] Start: 06-16-2023 End: 06-16-2023 ambulatory MICHAEL NORIEGA [facility] Start: 05-13-2023 End: 05-13-2023 ambulatory GabbieMORRIS Not Available Start: 10-01-2022 Office outpatient vi sit 15 minutes Irma Marii [facility] Start: 10-01-2022 End: 10-01-2022 ambulatory Irma Colvin [employer] Other Start: 10-01-2022 End: 10-01-2022 Patient encounter procedure MD Jean Carlos Izquierdo Work Phone: [facility] Work Phone: Start: 04-27-2022 End: 04-27-2022 ambulatory Jean Carlos Izquierdo Facility:[facility] Start: 04-27-2022 End: 04-27-2022 ambulatory MD Jean Carlos Izquierdo Work Phone: [facility] Work Phone: Start: 04-27-2022 End: 04-27-2022 Patient encounter procedure MD Jean Carlos Izquierdo Work Phone: [facility] Start: 03-06-2022 End: 03-06-2022 ambulatory Mimi Dangelo Other [employer] Other Start: 03-06-2022 Office outpatient vi sit 25 minutes Mimi Dangelo [facility] Start: 12-26-2021 End: 12-26-2021 ambulatory Seema Banerjee Other [employer] Other Start: 12-26-2021 Office outpatient vi sit 15 minutes Seema Banerjee [facility] Start: 10-12-2021 End: 10-12-2021 ambulatory Seema Banerjee Other [employer] Other Start: 10-12-2021 Office outpatient vi sit 15 minutes Seema Banerjee [facility] Start: 09-04-2021 End: 09-05-[address] JEAN CARLOS IZQUIERDO Facility: Start: 05-11-2018 End: 05-12-2018 Patient encounter procedure ABDULAZIM KAMI Facility:[facility] Start: 01-23-2017 End: 01-23-2017 Ambulatory JONATHON RECINOS [facility] Procedures Date Procedure Procedure Detail Performing Clinician Start: 08-11-2023 POCT INFLUENZA A/INFLUENZA B/SARS-COV-2 VERITOR Danielle Gregg CABLE ENGINE[employer] Work Phone: Start: 05-25-2023 Adult depression screening assessment Michael Noriega MD Work Phone: Start: 10-01-2022 Plain X-ray of left hand MD Jean Carlos Dior ce Work Phone: Start: 04-27-2022 X-ray of middle finger MD Jean Carlos Izquierdo Work Phone: Start: 05-11-2018 ANESTH UPPR ARM TENDON SURG DAVID HERNANDEZ Start: 05-11-2018 REPAIR ELBOW W/DONTA OPEN ABDULAZIM MUSTAP JAMA Arthroscopy of knee Trena Brenna e Colonoscopy Trena Lue Esophagogastroduodenoscopy K athy Lue Fasciotomy of foot Trena Lue Fluoroscopy guided c ooled radiofrequency ablation of nerve Trena Lue Reduction mammoplasty Trena Lue Renal lithotripsy Trena Lue Repair of hip Trena Lue Plan of Treatment Date Care Activity Detail Author Start: 10-13-2031 DTaP,Tdap and Td Vac cines (2 - Td or Tdap) DTaP,Tdap and Td Vaccines (2 - Td or Tdap) [facility] Start: 08-11-2024 Adult BMI Follow Up Plan Adult BMI Follow Up Plan [facility] Start: 08-11-2024 Adult BMI Screening Adult BMI Screen ing [facility] Start: 08-11-2024 Tobacco Screening Tobacco Screening [facility] Start: 05-25-2024 Adult BMI Screening Adult BMI Screen ing [facility] Start: 05-25-2024 Depression Screening Depression Scre ening [facility] Start: 05-25-2024 Tobacco Screening Tobacco Screening [facility] Start: 02-21-2024 Influenza vaccination Influenza Vacc ine [facility] Start: 10-21-2023 End: 10-21-2023 Clinical Support 10/21/2023 1:00 PM EDT Clinical Support [facility] [address] [place] [address] [facility] Start: 10-06-2023 Administration of varicella zoster vaccine Zoster (Shingles) Vaccine (2 of 2) [facility] Start: 10-05-2023 End: 10-05-2023 Patient encounter procedure 10/05/2023 10:15 AM EDT Office Visit [facility] [address] [place] [id number] Jean Carlos Izquierdo MD [address] [place] [address] [facility] Start: 09-11-2023 End: 09-11-2023 Clinical Support 09/11/2023 10:30 AM EDT Clinical Support [facility] [address] [place] [address] [facility] Start: 08-24-2023 End: 08-24-2023 Patient encounter procedure 08/24/2023 3:30 PM EST Office Visit [facility] [address] [place] [address] [phone] Michael Noriega MD [address] [phone] [facility] Start: 08-11-2023 End: 08-11-2023 Clinical Support [facility] Start: 2023 Administration of varicella zoster vaccine Zoster (Shingles) Vaccine (1 of 2) [facility] Start: 05-08-2023 COVID-19 Vaccine ( season) COVID-19 Vaccine ( season) [facility] Start: 1994 Screening for malign ant neoplasm of cervix Pap Smear [facility] Start: 1991 Adult BMI Follow Up Plan Adult BMI Follow Up Plan [facility] End: 08-11-2024 Hearing aid biaural evaluation Hearing aid biaural evaluation Audiology Routine Perceptive hearing loss, one side more than other 1 Occurrences starting 08/11/2023 until 08/11/2024 [facility] Work Phone: Comment on above: 1 Occurrences starti ng 08/11/2023 until 08/11/2024 Immunizations Immunization Date Immunization Notes Care Provider Yashira hunt 10-10-2023 zoster vaccine recombinant Trena Lue [facility] 08-11-2023 zoster vaccine recombinant Trena Lue [facility] 08-11-2023 zoster vaccine, unspecified formulation Rakel Perez DAR Work Phone: [facility] 03-13-2023 COVID-19, mRNA, LNP- S, PF, 30mcg/0.3mL Dose Michael Noriega MD Work Phone: [facility] 03-06-2023 Influenza, injectabl e, Madin Stinnett Canine Kidney, preservative free, quadrivalent Michael Noriega MD Work Phone: [facility] 03-06-2023 influenza virus vaccine, unspecified formulation Jean Carlos Izquierdo MD Work Phone: [facility] 03-28-2022 influenza virus vaccine, unspecified formulation Trena Lusilvina [facility] 03-28-2022 influenza, injectabl e, quadrivalent, preservative free Michael Noriega MD Work Phone: [facility] 03-28-2022 SARS-CoV-2 (COVID-19 ) [id number].[id number] Trena Dolan [facility] 10-12-2021 tetanus toxoid, redu pop diphtheria toxoid, and acellular pertussis vaccine, adsorbed Seema Banerjee Other [employer] Other 04-12-2021 influenza virus vaccine, unspecified formulation Trena Dolan [facility] 04-12-2021 influenza, injectabl e, quadrivalent, preservative free Michael Noriega MD Work Phone: [facility] 04-12-2021 SARS-CoV-2 (COVID-19 ) mRNA BNT-162b2 vax Trena Dolan [facility] Comment on above: Result Comment: 2023: [id number] 09-06-2020 SARS-CoV-2 (COVID-19 ) mRNA BNT-162b2 vax Trena Lue [facility] 08-16-2020 SARS-CoV-2 (COVID-19 ) mRNA BNT-162b2 vax Trena Lue [facility] 04-10-2020 influenza virus vaccine, unspecified formulation Trena Dolan [facility] 04-10-2020 influenza, injectabl e, quadrivalent, preservative free Michael Noriega MD Work Phone: [facility] 12-19-2015 hepatitis A and hepatitis B vaccine Michael Noriega MD Work Phone: [facility] 12-19-2015 meningococcal ACWY vaccine, unspecified formulation Trena Dolan [facility] 12-19-2015 meningococcal polysaccharide (groups A, C, Y and W-135) diphtheria toxoid conjugate vaccine (MCV4P) Michael Noriega MD Work Phone: [facility] 12-04-2015 hepatitis A and hepatitis B vaccine Michael Noriega MD Work Phone: [facility] 12-04-2015 typhoid vaccine, unspecified formulation Trena Dolan [facility] 12-04-2015 typhoid capsular polysaccharide vaccine Michael Noriega MD Work Phone: [facility] 11-27-2015 hepatitis A and hepatitis B vaccine Michael Noriega MD Work Phone: [facility] Payers Date Payer Category Payer Self-pay [id number] 2022 Unknown [id number] 2015 Unknown [id number] 2. 16.840.1.945413.19 1973 Unknown [id number] 2.16.8 40.1.086429.3.579.2.647 1973 Unknown [id number] 2.16.84 0.1.118601.3.579.2.593 1973 Unknown [id number] 2.16.8 40.1.711563.3.579.2.1285 1973 Unknown [id number] 2.16.8 40.1.198312.3.579.2.1285 1973 Unknown [id number] 2.16.8 40.1.891913.3.579.2.1285 1973 Unknown [id number] 2.16.84 0.1.242030.3.579.2.1285 1973 Unknown [id number] 2.16.8 40.1.492920.3.579.2.1285 1973 Unknown [id number] 2.16.8 40.1.709892.3.579.2.1285 1973 Unknown [id number] 2.16.8 40.1.839618.3.579.2.1285 1973 Unknown [id number] 2.16.8 40.1.490109.3.579.2.1285 1973 Unknown [id number] 2.16.8 40.1.362059.3.579.2.1285 1973 Unknown [id number] 2.16.8 40.1.342673.3.579.2.1285 1973 Unknown [id number] 2.16.8 40.1.909022.3.579.2.1285 1973 Unknown [id number] 2.16.8 40.1.605135.3.579.2.1285 1973 Unknown [id number] 2.16.8 40.1.930893.3.579.2.1285 1973 Unknown [id number] 2.16.8 40.1.485786.3.579.2.1285 1973 Unknown [id number] 2.16.8 40.1.389393.3.579.2.1285 1973 Unknown [id number] 2.16.8 40.1.931519.3.579.2.727 1973 Unknown [id number] 2.16.8 40.1.270634.3.579.2.727 1973 Unknown [id number] 2.16.8 40.1.546699.3.579.2.727 1973 Unknown [id number] 2.16.8 40.1.787216.3.579.2.727 1973 Unknown [id number] 2.16.84 0.1.580243.3.579.2.9 1973 Unknown [id number] 2.16.84 0.1.950778.3.579.2.1258 1973 Unknown [id number] 2.16.84 0.1.485126.3.579.2.1258 1973 Unknown [id number] 2.16.84 0.1.410946.3.579.2.1258 1973 Unknown [id number] 2.16.84 0.1.261555.3.579.2.1258 1973 Unknown [id number] 2.16.84 0.1.808126.3.579.2.1258 1973 Unknown [id number] 2.16.84 0.1.163280.3.579.2.1258 1973 Unknown [id number] 2.16.84 0.1.041512.3.579.2.1258 1973 Unknown [id number] 2.16.84 0.1.158783.3.579.2.1258 1973 Unknown [id number] 2.16.84 0.1.156599.3.579.2.1258 1973 Unknown [id number] 2.16.84 0.1.778140.3.579.2.9 1973 Unknown [id number] 2.16.84 0.1.849482.3.579.2.1258 1973 Unknown [id number] 2.16.84 0.1.927711.3.579.2.1259 1973 Unknown [id number] 2.16.840 .1.374247.3.579.2.1259 1959 Unknown [id number] Unknown [id number] Unknown [id number] 2.16.8 40.1.473203.3.579.2.531 Unknown [id number] 2.16.8 40.1.775979.3.579.2.531 Social History Date Type Detail Facility Unknown if ever smoked [employer] Other Start: 06-05-2022 End: 05-25-[address] [facility] Start: 08-28-2021 End: 08-28-2021 Tobacco smoking status [facility] Smoker (finding) [facility] Start: 1975 Sex Assigned At Female [facility] Start: 08-26-2022 End: 12-30-2023 Tobacco smoking status [facility] Ex-smoker [facility] End: 12-20-2022 History of tobacco use Cigarette Smoker [facility] Start: 06-05-2022 End: 08-26-2022 Cigarettes smoked current (pack per day) - Reported 0.5 [facility] Start: 08-26-2022 End: 08-11-2023 Tobacco use and exposure Smokeless tobacco non-user [facility] Start: 05-25-2023 End: 08-11-2023 Alcohol intake Current non-drinker of alcohol (finding) [facility] Do you belong to any clubs or organizations such as buddhist groups, unions, fraternal or athletic groups, or school groups? Yes [facility] Are you now , , , , never or living with a partner? [facility] How often to you hav e a drink containing alcohol? Never [facility] How many standard dr inks containing alcohol do you have on a typical day? Patient does not drink [facility] Do you feel stress - tense, restless, nervous, or anxious, or unable to sleep at night because your mind is troubled all the time - these days [OSQ] To some extent [facility] Start: 06-05-2022 Education 18 [facility] Start: 05-14-2022 Tobacco Comment smokes intermittently since her teens [facility] Start: 10-23-2021 Alcohol Comment used to be a heavy drinker but has been sober since 04/2014 [facility] Start: 1975 Sex Assigned At Not on file [facility] Medical Equipment Procedure Code Equipment Code Equipment Origin al Text Equipment Identifier Dates Hip Dep Pf Cerm/ Cerm Construct - Sna - [id number] Start: 08-26-2022 Elminator Hl Drl c Pncl Hip Mrthn - Sna - [id number] Start: 08-26-2022 Screw Hip Canc C nn Gription 25mm - Sna - [id number] Start: 08-26-2022 Goals Date Patient Goal Desired Activity /State Personal health goal Comment on above: Formatting of this n ote might be different from the original. Evaluation of progress towards goal: Home with family support and [facility] otpt PT Functional Status Date Assessment Result Facility 12-30-2023 Functional Status N/A [facility] Clinical Notes 10-12-2021 to 12-30-2023 Telephone Encounter - Brenda Martel LPN - 09/25/2023 11:47 AM EDTTelephone Encounter - Brenda Martel LPN - 09/25/2023 11:47 AM DAR [place] - 09/11/2023 10:30 AM EDTPatient Instructions Note Date & Type Note Facility 12-30-2023 Hospital Discharg e instructions Patient Education 12/30/2023 09:57:04 Dietary Guidelines to Help Prevent Kidney Stones Dietary Guidelines to Help Prevent Kidney Stones Kidney stones are deposits of minerals and salts that form inside your kidneys. Your risk of developing kidney stones may be greater depending on your diet, your lifestyle, the medicines you take, and whether you have certain medical conditions. Most people can lower their risks of developing kidney stones by following these dietary guidelines. Your dietitian may give you more specific instructions depending on your overall health and the type of kidney stones you tend to develop. What are tips for following this plan? Reading food labels Choose foods with no salt added or low-salt labels. Limit your salt (sodium) intake to less than 1,500 mg a day. Choose foods with calcium for each meal and snack. Try to eat about 300 mg of calcium at each meal. Foods that contain 200 500 mg of calcium a serving include: ?8 oz (237 mL) of milk, dmbwyyt-ckjrvnqmzijs-csclu milk, and calcium-fortifiedfruit juice. Calcium-fortified means that calcium has been added to these drinks. ?8 oz (237 mL) of kefir, yogurt, and soy yogurt. ?4 oz (114 g) of tofu. ?1 oz (28 g) of cheese. ?1 cup (150 g) of dried figs. ?1 cup (91 g) of cooked broccoli. ?One 3 oz (85 g) can of sardines or mackerel. Most people need 1,000 1,500 mg of calcium a day. Talk to your dietitian about how much calcium is recommended for you. Shopping Buy plenty of fresh fruits and vegetables. Most people do not need to avoid fruits and vegetables, even if these foods contain nutrients that may contribute to kidney stones. When shopping for convenience foods, choose: ?Whole pieces of fruit. ?Pre-made salads with dressing on the side. ?Low-fat fruit and yogurt smoothies. Avoid buying frozen meals or prepared deli foods. These can be high in sodium. Look for foods with live cultures, such as yogurt and kefir. Choose high-fiber grains, such as whole-wheat breads, oat bran, and wheat cereals. Cooking Do not add salt to food when cooking. Place a salt shaker on the table and allow each person to add their own salt to taste. Use vegetable protein, such as beans, textured vegetable protein (TVP), or tofu, instead of meat in pasta, casseroles, and soups. Meal planning Eat less salt, if told by your dietitian. To do this: ?Avoid eating processed or pre-made food. ?Avoid eating fast food. Eat less animal protein, including cheese, meat, poultry, or fish, if told by your dietitian. To do this: ?Limit the number of times you have meat, poultry, fish, or cheese each week. Eat a diet free of meat at least 2 days a week. ?Eat only one serving each day of meat, poultry, fish, or seafood. ?When you prepare animal proteins, cut pieces into small portion sizes. For most meat and fish, one serving is about the size of the palm of your hand. Eat at least five servings of fresh fruits and vegetables each day. To do this: ?Keep fruits and vegetables on hand for snacks. ?Eat one piece of fruit or a handful of berries with breakfast. ?Have a salad and fruit at lunch. ?Have two kinds of vegetables at dinner. You may be told to limit foods that are high in a substance called oxalate. These include: ?Spinach (cooked), rhubarb, beets, sweet potatoes, and Latvian chard. ?Peanuts. ?Potato chips, kazakh fries, and baked potatoes with skin on. ?Nuts and nut products. ?Chocolate. If you regularly take a diuretic medicine, make sure to eat at least 1 or 2 servings of fruits or vegetables that are high in potassium each day. These include: ?Avocado. ?Banana. ?[place], prune, carrot, or tomato juice. ?Baked potato. ?Cabbage. ?Beans and split peas. Lifestyle Drink enough fluid to keep your urine pale yellow. This is the most important thing you can do. Spread your fluid intake throughout the day. If you drink alcohol: ?Limit how much you have to: ?0 1 drink a day for women who are not . ?0 2 drinks a day for men. ?Know how much alcohol is in your drink. In the [place] one drink equals one 12 oz bottle of beer (355 mL), one 5 oz glass of wine (148 mL), or one 1 oz glass of hard liquor (44 mL). Lose weight if told by your health care provider. Work with your dietitian to find an eating plan and weight loss strategies that work best for you. General information Talk to your health care provider and dietitian about taking daily supplements. Depending on your health and the cause of your kidney stones, you may be told: ?Do not take high-dose supplements of vitamin C (1,000 mg a day or more). ?To take a calcium supplement. ?To take a daily probiotic supplement. ?To take other supplements such as magnesium, fish oil, or vitamin B6. Take qpcy-lhh-nmxasds and prescription medicines only as told by your health care provider. These include supplements. What foods should I limit? Limit your intake of the following foods, or eat them as told by your dietitian. Vegetables Spinach. Rhubarb. Beets. Canned vegetables. Pickles. Olives. Baked potatoes with skin. Grains Wheat bran. Baked goods. Salted crackers. Cereals high in sugar. Meats and other proteins Nuts. Nut butters. Large portions of meat, poultry, or fish. Salted, precooked, or cured meats, such as sausages, meat loaves, and hot dogs. Dairy Cheeses. Beverages Regular soft drinks. Regular vegetable juice. Seasonings and condiments Seasoning blends with salt. Salad dressings. Soy sauce. Ketchup. Barbecue sauce. Other foods Canned soups. Canned pasta sauce. Casseroles. Pizza. Lasagna. Frozen meals. Potato chips. Swazi fries. The items listed above may not be a complete list of foods and beverages you should limit. Contact a dietitian for more information. What foods should I avoid? Talk to your dietitian about specific foods you should avoid based on the type of kidney stones you have and your overall health. Fruits Grapefruit. The item listed above may not be a complete list of foods and beverages you should avoid. Contact a dietitian for more information. Summary Kidney stones are deposits of minerals and salts that form inside your kidneys. You can lower your risk of kidney stones by making changes to your diet. The most important thing you can do is drink enough fluid. Drink enough fluid to keep your urine pale yellow. Talk to your dietitian about how much calcium you should have each day, and eat less salt and animal protein as told by your dietitian. This information is not intended to replace advice given to you by your health care provider. Make sure you discuss any questions you have with your health care provider. Document Revised: 09/18/2022 Document Reviewed: 09/18/2022 [employer] Patient Education 2022 [email or web address]. Follow Up Care 07/22/2023 11:53:02 With:Kasie Dolan MDhy M., URL, [facility]RO Address: [address], [place] [address] [phone] When: Unknown [facility]23 Miscellaneous Notes [facility] requesting refill of Varenicline documented in this encounter [facility] 09-25-2023 Telephone encounter Note [facility] requesting refill of Varenicline [email or web address] 09-11-2023 History of Presen t illness Narrative Ms. Novoa was seen for a hearing aid evaluation (HAE). She was counseled regarding her recent audiogram (audio completed on 08/11/23). Ms. Novoa primarily struggles hearing in her classroom. 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 She struggles occasionally at home or in noisy environments. Realistic expectations of hearing aids and the benefits of binaural amplification were reviewed. We discussed hearing aid style, surgical garment assembler, connectivity, rechargeability, and level of technology options. She was counseled regarding pricing, warranty and trial periods. Ms. Novoa was given pricing information on basic through premium level of hearing aid technology offered at our office. She was encouraged to contact me should there be any questions. Ms. Novoa decided to try Phonak Audeo L50-RL hearing aids. She signed the order and insurance agreements today and is scheduled for the fitting on 10/21/23. I will place a hearing aid order for: Phonak Audeo L50-RLs -Style: VARUN -Level of technology: standard -Rechargeable: yes -Color: kate novoa -Avionics Systems Repairer size/strength: 1S -Dome/Earmold: small open -Connectivity: iPhone Artur Reed, [facility] Lint Cleaner documented in this encounter [facility] 09-07-2023 Miscellaneous Notes Received medication refill request via fax from [facility] on [address] Eletriptan 40mg Take 1 tablet (40 mg total) by mouth once as needed for migraine for up to 12 doses. May repeat in 2 hours if unresolved. Do not exceed 80 mg in 24 hours. Last fill 08/11/23 6 tabs w/1 refill Last seen 12/03/22 Annie Frazier Next visit RTC 1 yr per 12/03/22 visit notes documented in this encounter [facility] 09-07-2023 Telephone encounter Note Received medication refill request via fax from [facility] on [address] Eletriptan 40mg Take 1 tablet (40 mg total) by mouth once as needed for migraine for up to 12 doses. May repeat in 2 hours if unresolved. Do not exceed 80 mg in 24 hours. Last fill 08/11/23 6 tabs w/1 refill Last seen 12/03/22 Annie Frazier Next visit RTC 1 yr per 12/03/[address] [facility] 08-11-2023 Miscellaneous Notes Received medication refill request via fax from [facility] on [address] Eletriptan HBr 40mg Take 1 tablet (40 mg total) by mouth once as needed for migraine for up to 12 doses. May repeat in 2 hours if unresolved. Do not exceed 80 mg in 24 hours. Last fill 05/28/23 6 tabs w/1 refill Last seen 12/03/22 Annie Freddie Next visit RTC 1 yr per 12/03/22 visit notes Medication refill request for eletripan verified from office note dated 12/03/22, pharmacy verified as [facility]. Prescription sent to the provider Annie Frazier CNP for signature. Last visit: 12/03/22 Last filled: 05/28/23 Quantity: 6 w/ 1 refill Next Visit: RTC 1 YR 12/03/22 documented in this encounter [facility] 08-11-2023 Telephone encounter Note Received medication refill request via fax from [facility] on [address] Eletriptan HBr 40mg Take 1 tablet (40 mg total) by mouth once as needed for migraine for up to 12 doses. May repeat in 2 hours if unresolved. Do not exceed 80 mg in 24 hours. Last fill 05/28/23 6 tabs w/1 refill Last seen 12/03/22 Annie Frazier Next visit RTC 1 yr per 12/03/[address] [facility] 08-11-2023 Telephone encounter Note Medication refill request for eletripan verified from office note dated 12/03/22, pharmacy verified as [facility]. Prescription sent to the provider Annie Frazier CNP for signature. Last visit: 12/03/22 Last filled: 05/28/23 Quantity: 6 w/ 1 refill Next Visit: RTC 1 YR 12/03/22 [facility] 08-11-2023 History of Presen t illness Narrative Images from the original note were not included. [id number] [facility] [id number] SUBJECTIVE: Patient ID: Evie Novoa is a 48 y.o. female. Patient presents to the office with complaints of sore throat, headache, cough and congestion since yesterday. 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 Sore Throat Associated symptoms include congestion and coughing. Pertinent negatives include no abdominal pain, diarrhea, ear pain, neck pain, shortness of breath or vomiting. Cough Associated symptoms include a sore throat. Pertinent negatives include no chest pain, ear pain, fever, rash or shortness of breath. Sinusitis Associated symptoms include congestion, coughing, sinus pressure and a sore throat. Pertinent negatives include no ear pain, neck pain or shortness of breath. Nasal Congestion Associated symptoms include congestion, coughing, sinus pressure and a sore throat. Pertinent negatives include no ear pain, neck pain or shortness of breath. The following portions of the patient's history were reviewed and updated as appropriate: allergies, current medications, past family history, past medical history, past social history, past surgical history and problem list. REVIEW OF SYSTEMS: Review of Systems Constitutional: Negative for fatigue, fever and unexpected weight change. HENT: Positive for congestion, sinus pressure, sinus pain and sore throat. Negative for ear pain. Eyes: Negative for photophobia, pain, discharge and visual disturbance. Respiratory: Positive for cough. Negative for shortness of breath. Cardiovascular: Negative for chest pain, palpitations and leg swelling. Gastrointestinal: Negative for abdominal pain, diarrhea, nausea and vomiting. Endocrine: Negative for polydipsia, polyphagia and polyuria. Genitourinary: Negative for difficulty urinating, frequency, hematuria and urgency. Musculoskeletal: Negative for arthralgias, gait problem, joint swelling and neck pain. Skin: Negative for pallor and rash. Neurological: Negative for dizziness, weakness, light-headedness and numbness. Psychiatric/Behavioral: Negative for sleep disturbance. The patient is not nervous/anxious. PHYSICAL EXAMINATION: Vitals: 08/11/23 1312 BP: 122/68 Pulse: 83 Resp: 18 Temp: 36.9 C (98.5 F) SpO2: 98% Weight: 93.9 kg (207 lb) Physical Exam Constitutional: Appearance: She is well-developed. HENT: Head: Normocephalic and atraumatic. Right Ear: Tympanic membrane, ear canal and external ear normal. Left Ear: Tympanic membrane, ear canal and external ear normal. Nose: Congestion present. Eyes: Conjunctiva/sclera: Conjunctivae normal. Pupils: Pupils are equal, round, and reactive to light. Cardiovascular: Rate and Rhythm: Normal rate and regular rhythm. Heart sounds: Normal heart sounds. Pulmonary: Effort: Pulmonary effort is normal. Breath sounds: Normal breath sounds. Musculoskeletal: Cervical back: Normal range of motion. Lymphadenopathy: Cervical: Cervical adenopathy present. Skin: General: Skin is warm and dry. Neurological: Mental Status: She is alert and oriented to person, place, and time. Psychiatric: Mood and Affect: Mood normal. ASSESSMENT/PLAN: Evie was seen today for sore throat, cough, sinusitis and nasal congestion. Diagnoses and all orders for this visit: Acute non-recurrent maxillary sinusitis MDD (major depressive disorder), single episode, moderate ([facility]) Severe major depression without psychotic features ([facility]-HCC) Congested nose - POCT Influenza A/Influenza B/SARS-COV-2 Veritor Other orders - azithromycin (ZITHROMAX) 250 mg tablet; Take 1 tablet (250 mg total) by mouth in the morning for 5 days. Take 2 tablets the first day, then 1 tablet daily for 4 days.. Follow-up: Influenza covid negative Zpack Follow up with routine appointment or as needed Keep appointments with specialist Patient noted to have elevated BMI and the following intervention(s) were applied: encouragement to exercise. VIKTOR Culver 08/11/23 1352 documented in this encounter [employer] 08-11-2023 History of Presen t illness Narrative Images from the original note were not included. [facility] [address] [facility] [id number] SUBJECTIVE: Patient ID ([id number]): Evie Novoa is a 48 y.o. female presents today for Chief Complaint Patient presents with Hearing Loss HPI: Evie is seen in consultation per the request of Dr Jean Carlos Izquierdo for hearing loss.. She notes that she has experienced a decrease in her ability to hear over the past year. 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 She denies tinnitus. HISTORY: Past Medical History: Diagnosis Date ADHD (attention deficit hyperactivity disorder) [address] Prashanth Cordova Anxiety Back pain COVID-19 06/15/2020 Depression Fibromyalgia GERD (gastroesophageal reflux disease) Hypothyroid Kidney stone Migraines Osteoarthritis Plantar fasciitis Skin cancer removed Trigeminal neuralgia Urinary frequency Varicella 1974 Visual impairment contacts Past Surgical History: Procedure Laterality Date COLONOSCOPY with polypectomy N/A 01/20/2022 Performed by Michael Noriega MD at [facility] ENDOSCOPY ESOPHAGOGASTRODUODENOSCOPY with bx's N/A 01/20/2022 Performed by Michael Noriega MD at [facility] ENDOSCOPY FASCIOTOMY PLANTAR INSTEP FOOT Left 01/22/2018 Performed by Bashir Hawk DPM at [facility] INJECTION BLOCK SACROILIAC JOINT Right SI joint Right 07/27/2020 Performed by Jae Hopkins MD at [facility] INJECTION HYPOGASTRIC N/A 03/23/2020 Performed by Jae Hopkins MD at [facility] HYPOGASTRIC SHPB N/A 04/20/2020 Performed by Jae Hopkins MD at [facility] MEDIAL BRANCH NERVE BLOCK: right c 45 56 67 mbb x 1 Right 03/02/2017 Performed by Jae Hopkins MD at [facility] MEDIAL BRANCH NERVE BLOCK: right C23 34 mbb x 1 Right 02/13/2017 Performed by Jae Hopkins MD at [facility] INJECTION SI JOINT Right SI Joint Right 06/08/2020 Performed by Jae Hopkins MD at [facility] KNEE ARTHROSCOPY Left LITHOTRIPSY RADIOFREQUENCY ABLATION SPINAL: R C45 56 67 rfa Right 04/06/2017 Performed by Jae Hopkins MD at [facility] REDUCTION MAMMAPLASTY 1994 REPLACEMENT TOTAL JOINT HIP Left 08/26/2022 Performed by Morris Castro Jr., DO at [facility] Right Cervical C4/5, C5/6, C6/7 Medial Branch Block x1 Right 01/16/2017 Performed by Jae Hopkins MD at [facility] SKIN BIOPSY 2018 Basal cell Family History Problem Relation Age of Onset Cancer Mother Stroke Mother Other Father Covid pneumonia Breast cancer Maternal Aunt Pancreatic cancer Maternal Grandfather Stomach cancer Maternal great-grandmother Arthritis Paternal Grandmother Osteoarthritis, multiple joint replacements Asthma Daughter since 2002 Learning disabilities Daughter Mild dyslexia, 2021 Colon cancer Neg Hx Social History Socioeconomic History Marital status: Spouse name: Not on file Number of children: Not on file Years of education: Not on file Highest education level: Master's degree (e.g., MA, MS, Ange, MEd, [employer] W[employer]ER [employer]ER, [employer]) Occupational History Not on file Tobacco Use Smoking status: Former Packs/day: 0.50 Years: 15.00 Additional pack years: 0.00 Total pack years: 7.50 Types: Cigarettes Quit date: 12/20/2022 Years since quittin.6 Smokeless tobacco: Never Tobacco comments: smokes intermittently since her teens Vaping Use Vaping Use: Never used Substance and Sexual Activity Alcohol use: No Comment: used to be a heavy drinker but has been sober since 04/2014 Drug use: Not Currently Types: Medical Marijuana Comment: daily edibles Last - edible gummy 08/25/2022 Sexual activity: Yes Partners: Male control/protection: Surgical Other Topics Concern Not on file Social History Narrative Not on file Social Determinants of Health Financial Resource Strain: Low Risk (04/08/2023) Overall Financial Resource Strain (CARDIA) Difficulty of Paying Living Expenses: Not hard at all Food Insecurity: No Food Insecurity (05/25/2023) Hunger Screening Food Insecurity - Worry: Never True Food Insecurity - Inability: Never True Transportation Needs: No Transportation Needs (04/08/2023) PRAPARE - Transportation Lack of Transportation (Medical): No Lack of Transportation (Non-Medical): No Physical Activity: Sufficiently Active (06/05/2022) Exercise Vital Sign Days of Exercise per Week: 5 days Minutes of Exercise per Session: 40 min Stress: Stress Concern Present (06/05/2022) [facility] [place] [employer] - Occupational Stress Questionnaire Feeling of Stress : To some extent Social Connections: Socially Integrated (06/05/2022) Social Connection and Isolation Panel [NHANES] Frequency of Communication with Friends and Family: More than three times a week Frequency of Social Gatherings with Friends and Family: Once a week Attends Spiritism Services: More than 4 times per year Active Member of Clubs or Organizations: Yes Attends Club or Organization Meetings: More than 4 times per year Marital Status: Interpersonal Safety: Not At Risk (06/05/2022) Humiliation, Afraid, Rape, and Kick questionnaire Fear of Current or Ex-Partner: No Emotionally Abused: No Physically Abused: No Sexually Abused: No Housing Instability: Low Risk (04/08/2023) Housing Instability Housing Instability: No Allergies Allergen Reactions Red Dye Other (See Comments) As a child Current Outpatient Medications Medication Sig Dispense Refill amitriptyline (ELAVIL) 25 mg tablet Take 1 tablet (25 mg total) by mouth nightly. 90 tablet 1 clonazePAM (KlonoPIN) 0.5 mg tablet Take 1 tablet (0.5 mg total) by mouth 2 (two) times a day as needed for anxiety. 180 tablet 0 dextroamphetamine-amphetamine (AdderalL) 10 mg tablet Take 1 tablet (10 mg total) by mouth daily with breakfast AND 1 tablet (10 mg total) Daily after lunch. Max Daily Amount: 20 mg. 60 tablet 0 DULoxetine (CYMBALTA) 60 mg capsule Take 2 capsules (120 mg total) by mouth once daily. 180 capsule 0 eletriptan (RELPAX) 40 mg tablet Take 1 tablet (40 mg total) by mouth once as needed for migraine for up to 12 doses. May repeat in 2 hours if unresolved. Do not exceed 80 mg in 24 hours. 6 tablet 1 lamoTRIgine (LaMICtal) 100 mg tablet Take 1 tablet (100 mg total) by mouth once daily. 90 tablet 1 levothyroxine (SYNTHROID, LEVOTHROID) 100 MCG tablet TAKE 1 TABLET (100 MCG TOTAL) BY MOUTH IN THE MORNING 90 tablet 3 pantoprazole (PROTONIX) 40 mg EC tablet TAKE 1 TABLET BY MOUTH IN THE MORNING AND THE EVENING. TAKE 30 MINUTES BEFORE BREAKFAST AND DINNER. 180 tablet 1 pregabalin (LYRICA) 25 mg capsule Take 2 capsules (50 mg total) by mouth nightly. traZODone (DESYREL) 50 mg tablet Take 2 tablets (100 mg total) by mouth nightly. 180 tablet 3 azithromycin (ZITHROMAX) 250 mg tablet Take 1 tablet (250 mg total) by mouth in the morning for 5 days. Take 2 tablets the first day, then 1 tablet daily for 4 days.. 6 tablet 0 No current facility-administered medications for this visit. REVIEW OF SYSTEMS: Review of Systems Constitutional: Negative for chills and fever. HENT: Positive for congestion. Negative for ear discharge, ear pain and tinnitus. Eyes: Negative for redness. Respiratory: Negative for cough and shortness of breath. Gastrointestinal: Negative for vomiting. Endocrine: Negative for heat intolerance. Musculoskeletal: Negative for gait problem. Allergic/Immunologic: Negative for environmental allergies. Neurological: Positive for dizziness and headaches. Hematological: Bruises/bleeds easily (bruise). Data Reviewed: Audiogram 08/11/23 PHYSICAL EXAMINATION: Temp 36.9 C (98.4 F) Resp 17 Ht 172.7 cm (5' 8 ) Wt 93.6 kg (206 lb 6.4 oz) BMI 31.38 kg/m Constitutional: Healthy, alert, cooperative, and in no distress and normal ablility to communicate . Voice normal quality. Head/Face: Normocephalic, without obvious abnormality, salivary glands normal, atraumatic, sinuses nontender, and facial nerve intact Eyes: No gross abnormalities., EOMI, no nystagmus, and no lid ptosis Ear: RIGHT: hearing normal, external ear normal, canal normal, and TM normal without fluid or infection LEFT: hearing normal, external ear normal, canal normal, and TM normal without fluid or infection Nose: External nose appears normal, normal mucosa, normal turbinates, no nasal polyps or masses, and deviated nasal septum left Oral: normal teeth, normal lips, normal gums, normal hard palate, normal anterior tongue, and oral mucosa moist Oropharynx: normal-appearing mucosa, no pharyngitis, no exudate, tonsillar hypertrophy, 1+, and normal soft palate and uvula Nasopharynx: The nasopharynx was examined with a mirror, normal, mucosa appearance normal, adenoid bed is normal, eustachian tube orifices patent, and posterior choanae patent, Hypopharynx: The hypopharynx was examined by mirror, normal, normal epiglottis, pharyngeal dubon: normal, base of tongue: normal, and pyriform sinuses: normal, Larynx: The larynx was examined with a mirror, false and true vocal cords were normal, vocal cord mobility was normal, and arytenoids normal TMJ: no pain, crepitus, or trismus Neck:normal, supple, no adenopathy, thyroid normal in size, no nodules or tenderness, no neck masses palpable, and carotids normal Heart: Regular rate Respiration: No stridor, Normal respiratory effort. Neurologic: Grossly normal Alert Oriented X 3 Affect normal Cranial nerves 2 -12 grossly intact ASSESSMENT/PLAN: Evie was seen today for hearing loss. Diagnoses and all orders for this visit: Perceptive hearing loss, one side more than other - [facility] - [place], [place] - Hearing aid biaural evaluation; Future DNS (deviated nasal septum) Plan: The patient underwent an audiogram prior to the office visit. The results were reviewed and discussed with the patient. Her hearing results are within normal limits for the frequencies that we test in office. But, it is possible that she is beginning to lose her ultra-high frequency hearing. 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 Her ears appeared normal on exam today. Lifestyle modification techniques for hearing loss to consider are: Making sure the person you are talking with is looking at you, sitting closer to the person who is speaking, and, in environments where there is a lot of background noise, sit where there is a wall behind you to block out excess background noise. 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 I will see her back as needed. Scribe Statement: Scribed for and in the presence of Marquita Montero DO by Rowan Geiger (scribe). Rowan Geiger 08/11/2023 9:05 AM Provider Statement: I Marquita Montero DO personally performed the services described in the documentation as described by the above named scribe in my presence. It is both accurate and complete at the time of final signature. Dr. Marquita Montero 08/11/2023 4:34 PM Counseling: The following elements of medical decision making were considered during this visit: Reviewed and summarized previous records and History and physical and audiogram. The patient was counseled regarding prognosis, risks and benefits of treatment options, impressions, importance of compliance with treatment and risk factor reductions. The patient verbalized understanding and agreement to the plan. Please note that parts of this chart were generated using voice recognition Anda dictation software. Although every effort was made to ensure the accuracy of this automated inventory checker, some errors in inventory checker may have occurred. Florinda Suarez CNA 08/11/23 0842 Rowan Geiger 08/11/23 0909 documented in this encounter [facility] 08-11-2023 Instructions Marquita Montero DO - 08/11/2023 8:30 AM EST Plan: The patient underwent an audiogram prior to the office visit. The results were reviewed and discussed with the patient. Her hearing results are within normal limits for the frequencies that we test in office. But, it is possible that she is beginning to lose her ultra-high frequency hearing. 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 Her ears appeared normal on exam today. Lifestyle modification techniques for hearing loss to consider are: Making sure the person you are talking with is looking at you, sitting closer to the person who is speaking, and, in environments where there is a lot of background noise, sit where there is a wall behind you to block out excess background noise. 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 I will see her back as needed. documented in this encounter 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 She feels she is having to ask others to repeat more often. She had a hearing screening completed by the nurse at school, which showed a possible issues with hearing in her left ear. She denies otalgia, aural fullness, otorrhea, and tinnitus. She reports episodes of imbalance and blurred vision. She reports this feeling lasts a few seconds when present but occurs daily. She denies previous ear surgery, history of occupational noise exposure, and family history of hearing loss. HISTORY: Concerns with hearing: Yes Tinnitus: No Dizziness: Yes Noise Exposure: No Aural Fullness: No Otalgia: No Otorrhea: No Other significant history: None RESULTS: Otoscopic Evaluation: Right Ear: Unremarkable Left Ear: Unremarkable Immittance Measures: Right Ear: Type A Left Ear: Type A Acoustic Reflexes (500, 1000, 2000Hz): Testing not indicated based on case history and other assessment results Pure Tone Audiometry: Right Ear: Hearing sensitivity is within normal limits 250-8000 Hz Left Ear: Hearing sensitivity is within normal limits 250-8000 Hz Asymmetry noted: No Reliability: good Speech Audiometry: SRT/FIREPERSON in good agreement WRS: Right Ear: Excellent (92%) Left Ear: Good (88%) RECOMMENDATIONS: Follow up with Dr. Marquita Montero Consideration of mild gain hearing aids due to reported struggles hearing at work Retest should she note changes in her audiologic symptoms Artur Thakkar, [facility] [employer]er documented in this encounter [employer] 07-22-2023 Note Chief Complaint Referral *Renal Cyst HPI Staff Pt referral by Jean Carlos Izquierdo for renal lesion found 06/16/[address] abdomen and pelvis w con done @ [facility]. Pt is a new pt. Never before seen in our office. An incidental 1.4 cm cystic renal lesion with minimal smooth thickening of the wall is seen in the lower pole of the right kidney. No left renal masses noted. There is a 4mm nonobstructive left interpolar calculus. Bladder view is partially obscured due to imaging artifact from left hip arthroplasty. CT was ordered by Gastro due to bowel issues. Pt does have Hx of Kidney Stones. Lithotripsy in 1991 in [place]. Did pass stones on her own in 2011. Currently having some Rt flank discomfort. Does not feel like she is completely emptying bladder, for the past few months. Denies pain/burning and visible blood in urine. Denies leaking, however she states sometimes it feels like she is leaking, but then she is dry. PVR 45ml History of Present Illness Tests reviewed: reviewed UA and External Records including CT scan, labs, notes, UAs I have reviewed the previous health record information and history for this patient from External Provider. I have reviewed and verified the staff HPI to be accurate for this encounter. There have been no associated fever, chills, flank pain, or blood in the urine. Denies any urinary infections Review of Systems PHQ Score Initial Depression Screen Score: 0 SCORE ROS - Provider Constitutional: denies weight loss, denies hot flashes. Eyes: denies eye problems. Gastrointestinal: denies nausea, denies vomiting. Cardiovascular: denies chest pain or angina. Integumentary: no dryness Musculoskeletal: denies musculoskeletal symptoms. ENMT: denies otolaryngeal symptoms. Respiratory: no shortness of breath. Heme/Lymph: denies easy bleeding tendency, denies easy bruising tendency. Psychiatric: no confusion, no anxiety. Genitourinary: See HPI. Physical Exam Vitals & Measurements HR: 86(Peripheral) RR: 16 BP: 111/82 HT: 69 in HT: 174 cm WT: 89.5 kg WT: 196.9 lb BMI: 29.56 General Appearance: alert , no acute distress, well nourished, well developed female. Head: normocephalic . Eyes: normal orbit and globe. ENMT: normal examination of external ears. Chest: symmetric chest rise, respirations non labored . Cardiovascular: regular rate and rhythm. Abdomen: soft, non distended, no tenderness Genitourinary: bladder nonpalpable, no flank tenderness. Skin: warm, dry, no bruising. Psychiatric: cooperative, affect appropriate for age, normal judgement, euthymic mood. Assessment/Plan 47 year old female new patient presents with complex renal cyst and kidney stone 1. Renal cyst (N28.1: Cyst of kidney, acquired) CT AP w/IV Con @ [facility] 06/16/23 - 1.4 cm right lower pole cystic renal lesion with minimal smooth thickening of the wall, Bosniak 2f. (no non-contrast phase to eval enhancement) CT was ordered by Gastro due to bowel issues. Denies any visible blood in the urine. Denies any history of kidney or bladder cancer. UA negative today Patient was educated at length on the Bosniak classification system of renal cystic masses which divides renal cystic masses into five categories based on imaging characteristics on contrast-enhanced CT. It is helpful in predicting a risk of malignancy and suggesting either follow up or treatment. ? Bosniak 2F ? minimally complex ? increased number of septa, minimally thickened with nodular or thick calcifications ? there may be perceived (but not measurable) enhancement of a hairline-thin smooth septa ? hyperdense cyst >3 cm diameter, mostly intrarenal (less than 25% of wall visible); no enhancement ? requiring follow-up: needs ultrasound/CT follow up - no strict rules on the time frame but reasonable at 6 months ? percentage malignant: 5% Recommend continued surveillance given small risk of malignancy. Briefly discussed treatment options if needed including perc ablation vs partial nephrectomy. Follow up in 6 mos w/ CT. All questions/concerns were discussed. Pt to call the office if she encounters any issues prior. Pt acknowledges understanding. -Will order CT Abdomen w/wo IV Contrast in 6 months 2. Kidney stone (N20.0: Calculus of kidney) CT AP w/Con @ [facility] 06/16/23 - 4mm left midpole stone We discussed management options moving forward including general dietary modifications, metabolic stone work-up including serum labs and 24-hour urine analysis, continued surveillance with imaging in 6 to 12 months or expectant management. The patient like to proceed with general recommendations for stone prevention, surveillance and metabolic workup. -Maintaining urine output > 2.5 liters a day. -Fluid intake > 3 liters a day, consisting of mostly water, although orange juice and lemonade are also excellent choices in non-obese, non-diabetic patients who have concomitant hypocitraturia. Some experts recommend avoiding dark, sugary soda. --St (more content not included)... [facility] Comment on above: Result Comment: Elec tronically Signed By: Trena Dolan MD\.br\Date and Time Signed: 07/22/23 15:05 EST\.br\Electronically Co-Signed By: Jonelle Senior\.br\Date and Time Co-Signed: 07/22/23 11:52 EST 06-19-2023 Miscellaneous Notes Please call pt and advise her that I have reviewed recent CT abd and would recommend f/u urology for cyst and stone seen on this study- does pt have a urologist or does she need a referral? Patient notified. Please place a referral for Dr Cody multani in [place]. Thanks! Referral in place LM patient VM. Referral will be faxed this week. documented in this encounter [facility] 06-19-2023 Telephone encounter Note Please call pt and advise her that I have reviewed recent CT abd and would recommend f/u urology for cyst and stone seen on this study- does pt have a urologist or does she need a referral? [facility] Telephone encounter Note Patient notified. Please place a referral for Dr Cody multani in [facility]. Thanks! [facility]23 Telephone encounter Note [facility]erral in place [facility] 06-19-2023 Telephone encounter Note LM patient VM. Referral will be faxed this week. [email or web address] 06-16-2023 Miscellaneous Notes Please let the patient know that her recent CT showed mild to moderate amount of stool mainly in the right side of the colon. Otherwise the bowels looked normal. Continue miralax for the constipation. If this is not helping much, she should let us know. It also showed a tiny 4mm kidney stones. Make sure to stay well hydrated. Also showed 1.4cm cyst in the right kidney which is likely benign but requires monitoring with repeat imaging in 6 months and 12 months, then annually for a total of 5 years. She should follow about this finding with her primary care doctor. Also showed 1.6mm likely benign cyst in the pelvic bone. Please send a copy of the CT scan result to her PCP to make him aware about the CT scan finding of the kidney cyst to follow on that. Thanks documented in this encounter [employer] 06-16-2023 Telephone encounter Note Please let the patient know that her recent CT showed mild to moderate amount of stool mainly in the right side of the colon. Otherwise the bowels looked normal. Continue miralax for the constipation. If this is not helping much, she should let us know. It also showed a tiny 4mm kidney stones. Make sure to stay well hydrated. Also showed 1.4cm cyst in the right kidney which is likely benign but requires monitoring with repeat imaging in 6 months and 12 months, then annually for a total of 5 years. She should follow about this finding with her primary care doctor. Also showed 1.6mm likely benign cyst in the pelvic bone. Please send a copy of the CT scan result to her PCP to make him aware about the CT scan finding of the kidney cyst to follow on that. Thanks [facility] 10-01-2022 Evaluation note Encounter Date Diagnosis Assessment Notes Sep, Left hand pain (ICD-10 - M79.642) Sep, Contusion of left hand, initial encounter (ICD-10 - S60.222A) Wear the Rahul wrap for comfort and compression. Ice and elevate your hand 2-3 times a day. Take Tylenol or Motrin as needed for aches pains or fevers. Follow-up with your family physician if no improvement in 5 to 7 days. [employer] Other 09-15-2022 Evaluation note* Encounter Date Diagnosis Assessment Notes Treatment Notes Treatment Clinical Notes Feb, Contact with and (suspected) exposure to other viral communicable diseases (ICD-10 - Z20.828) Feb, Viral URI (ICD-10 - J06.9) Advised patient that COVID PCR test and Influenza A/B test was negative today. Advised patient that will treat as viral URI. Supportive care as directed, increase fluids and rest, Tylenol/Motrin as directed, OTC cough/cold remedies as directed on packaging, cool mist humidifier, throat lozenges. Discussed infection control practices such as good hand washing and mask wearing. Patient to follow up with PCP if symptoms persist or worsen despite treatment. Immediate eval for SOB, difficulty, chest pain, fevers that do not break with antipyretic or any other concerning symptoms as reviewed on patient education handout. Patient verbalizes understanding and is agreeable to treatment plan. Patient left in stable condition [employer] Other 07-07-2022 Evaluation note* Encounter Date Diagnosis Assessment Notes Treatment Notes Treatment Clinical Notes Dec, Intractable migraine without aura and with status migrainosus (ICD-10 - G43.011) Take medication as directed. Stay away from known triggers. Follow up with primary care provider or neurology if symptoms persist as new treatment option may need to be discussed. Phenergan tablets will help with nausea but are sedating. Did receive injection of Toradol/Steroid injection today in office [employer] Other 04-23-2022 Evaluation note* Encounter Date Diagnosis Assessment Notes Treatment Notes Treatment Clinical Notes Sep, Puncture wound of left foot, initial encounter (ICD-10 - S91.332A) Updated vaccine in office today. Follow wound treatment guidelines. Keep dressing on for 24 hours if possible.. FOllow up wiht PCP if symptoms such as moderate swelling, redness, drainage occure. [employer] Other Evaluation + Plan note Future Appointments Appointment Date:07/11/2024 01:00:00 PM Scheduled Provider:Trena Dolan MD Location: Appointment Type:URO Office Visit [facility] evaluation noteNo assessment information available [facility] Work Phone: Evaluation note* Diagnosis Cyst, kidney, acquired- Primary Acquired cyst of kidney [facility] Diagnosis Dizziness- Primary Dizziness and giddiness Hearing exam without abnormal findings [facility] Diagnosis Acute non-recurrent maxillary sinusitis- Primary MDD (major depressive disorder), single episode, moderate (CMS-HCC) Severe major depression without psychotic features (CMS-HCC) Major depressive disorder, single episode, severe, without mention of psychotic behavior Congested nose Other diseases of nasal cavity and sinuses [facility] Diagnosis Perceptive hearing loss, one side more than other- Primary DNS (deviated nasal septum) Deviated nasal septum [facility]* Diagnosis Intractable migraine without aura and without status migrainosus [facility]* Diagnosis Dysphagia, unspecified type Gastroesophageal reflux disease, unspecified whether esophagitis present [facility] this [facility]* Diagnosis Intractable migraine without aura and without status migrainosus [facility] this [facility]* Diagnosis Onset Date Resolution Status Paronychia of right middle finger acute [facility] Work Phone: [facility] general Narrative - Reported* Type Description Date Medical History Fibromyalgia Medical History Depression Medical History Anxiety Medical History OA (osteoarthritis) Medical History Kidney stones Medical History asthma Medical History Hypothyroidism Surgical History breast reduction Surgical History lithotripsy Surgical History ablasion Surgical History wisdom teeth Surgical History nerve block Surgical History elbow surgery Surgical History planter facitis left foot Hospitalization History see above [employer] [facility] Narrative - Reported* Type Description Date Medical History Fibromyalgia Medical History Depression Medical History Anxiety Medical History OA (osteoarthritis) Medical History Kidney stones Medical History asthma Medical History Hypothyroidism Medical History migraine Surgical History breast reduction Surgical History lithotripsy Surgical History ablasion Surgical History wisdom teeth Surgical History nerve block Surgical History elbow surgery Surgical History planter facitis left foot Hospitalization History see above [employer] Other [facility] general Narrative - Reported* Type Description Date Medical History Fibromyalgia Medical History Depression Medical History Anxiety Medical History OA (osteoarthritis) Medical History Kidney stones Medical History asthma Medical History Hypothyroidism Medical History migraine Surgical History breast reduction Surgical History lithotripsy Surgical History ablasion Surgical History wisdom teeth Surgical History nerve block Surgical History elbow surgery Surgical History planter facitis left foot Surgical History EGD 01/2022 Surgical History colonoscopy 01/2022 Hospitalization History see above [employer] Other History general Narrative - Reported* Type Description Date Medical History Fibromyalgia Medical History Depression Medical History Anxiety Medical History OA (osteoarthritis) Medical History Kidney stones Medical History asthma Medical History Hypothyroidism Medical History migraine Surgical History breast reduction Surgical History lithotripsy Surgical History ablasion Surgical History wisdom teeth Surgical History nerve block Surgical History elbow surgery Surgical History planter facitis left foot Surgical History EGD 01/2022 Surgical History colonoscopy 01/2022 Surgical History left hip replacement Hospitalization History see above [employer] Other Hospital course Narrative No data available for this section [facility] [place] InstructionsNot on filedocumented in this encounter [facility] filed[facility] filedocumented in this [facility]* Attachments The following attachments cannot be sent through Care Everywhere. * Sinusitis in adults ([place]) documented in [facility] System[facility]ructionsNot on file documented in this encounterPro[facility]ica [facility] SystemInstructionsNot on file documented in this encounterPro[facility] SystemInstructionsNot on file documented in this encounterPro[facility] SystemInstructionsNot on file documented in this encounterPro[facility]ica [facility] SystemProgress note No data available for this section [facility] [place] reason for referral (narrative)* Consultation (Routine) - Pending Review Specialty Diagnoses / Procedures Referred By Maurilio potts Referred To Contact Urology Diagnoses Cyst, kidney, acquired Jean Carlos Izquierdo MD [address] [place] [address] Casper Ross MD [address] [place] [address] Referral ID Status Reason Start Date Expiration Date Visits Requested Visits Authorized [id number] Pending Review Specialty Services Required 06/23/2023 06/22/2024 1 1 [facility] Summary Purpose Family History Relationship Condition Age at Onset Recorded Date/T ruth father Unknown Not Specified Unknown Hypertension Unknown Advance Directives Advance Directive Response Recorded Date/ Time Advance Directives No January 14 4:29pm Advance Directive Response Recorded Date/ Time Advance Directives No January 14 5:29pm Latest Code Status on File Code Status Date Activated Date Inactivated Comments Full Code 08/25/2022 9:09 PM 08/27/2022 7:35 PM Latest Code Status on File Code Status Date Activated Date Inactivated Comments Full Code 08/25/2022 9:09 PM 08/27/2022 7:35 PM Reason for Referral Specialty Diagnoses / Procedures Referred By Maurilio potts Referred To Contact Diagnoses Perceptive hearing loss, one side more than other Procedures Hearing aid biaural evaluation Marquita Montero DO [address] [facility] [place] [address] Referral ID Status Reason Start Date Expiration Date V isits Requested Visits Authorized [id number] Pending Review 08/11/2023 08/10/2024 1 1 Chief Complaint and Reason for Visit Chief Complaint right middle finger poss infection Reason for Visit Paronychia of right middle finger Additional Source Comments INFORMATION SOURCE (unrecogn ized section and content) DATE CREATED AUTHOR 12/16/2017 [facility] DATE CREATED AUTHOR AUTHOR'S ORGANIZ ATION 05/30/2018 [facility] DATE CREATED AUTHOR AUTHOR'S ORGANIZ ATION 09/09/2021 [facility] DATE CREATED AUTHOR AUTHOR'S ORGANIZ ATION 07/05/2022 [facility] Specialist DATE CREATED AUTHOR AUTHOR'S ORGANIZ ATION 10/02/2022 [facility] DATE CREATED AUTHOR AUTHOR'S ORGANIZ ATION 11/29/2023 [facility] DATE CREATED AUTHOR AUTHOR'S ORGANIZ ATION 12/23/2023 [facility] DATE CREATED AUTHOR AUTHOR'S ORGANIZ ATION 12/28/2023 [facility] DATE CREATED AUTHOR AUTHOR'S ORGANIZ ATION 12/28/2023 [facility] d[facility] Specialists EPIC REASON FOR VISIT (unrecogniz ed section and content) Reason Comments Hearing Problem Reason Comments Sore Throat Cough Sinusitis Nasal Congestion Reason Comments Hearing Loss Specialty Diagnoses / Procedures Referred By Maurilio potts Referred To Contact Otolaryngology Diagnoses Hearing loss of left ear, unspecified hearing loss type Jean Carlos Izquierdo MD [address] [place] [id number] Marquita Montero, DO [address] [facility] [address] [place] [address] Referral ID Status Reason Start Date Expiration Date V isits Requested Visits Authorized [id number] Closed Specialty Services Required 05/25/2023 05/24/2024 1 1 Reason Onset Date Comments Med Refill 08/11/2023 Reason Comments Med Refill Reason Onset Date Comments Med Refill 09/07/2023 Care Teams (unrecognized sec tion and content) Personnel Name: JEAN CARLOS IZQUIERDO MD Address: Address: [address] [place] [address] Team Status: Inactive Member Role Status Dates Jean Carlos Izquierdo MD Primary Care Provider Active Mimi Dangelo APRN Attending Provider Active Team Status: Active Member Role Status Dates Jean Carlos Izquierdo MD Primary Care Provider Active Team Status: Inactive Member Role Status Dates Jean Carlos Izquierdo MD Primary Care Provider Active LEENA DunbarC Attending Provider Active Transformation Analyst Relationship Specialty Start Date End Date Jean Carlos Izquierdo MD [address] [place], [place] [address] [address] PCP - General Family Medicine 11/22/22 Transformation Analyst Relationship Specialty Start Date End Date Jean Carlos Izquierdo MD [address] [place], [place] [address] [address] PCP - General Family Medicine 11/22/22 Transformation Analyst Relationship Specialty Start Date End Date Jean Carlos Izquierdo MD [address] [place] [address] [place] [address] PCP - General Family Medicine 11/22/22 Transformation Analyst Relationship Specialty Start Date End Date Jean Carlos Izquierdo MD [address] [place] [address] PCP - [facility] Medicine 11/22/22 Transformation Analyst Relationship Specialty Start Date End Date Jean Carlos Izquierdo MD [address] [place] [address] PCP - [facility] Medicine 11/22/22 Transformation Analyst Relationship Specialty Start Date End Date Jean Carlos Izquierdo MD [address] [place] [address] PCP - [facility] 11/22/22 Transformation Analyst Relationship Specialty Start Date End Date Jean Carlos Izquierdo MD [address] [place] [address] PCP - [facility] 11/22/22 Transformation Analyst Relationship Specialty Start Date End Date Jean Carlos Izquierdo MD [address] [place] [address] PCP - [facility] 11/22/22 Transformation Analyst Relationship Specialty Start Date End Date Jean Carlos Izquierdo MD [address] [place] [address] PCP - [facility] 11/22/22 Transformation Analyst Relationship Specialty Start Date End Date Jean Carlos Izquierdo MD [address] [place] [address] PCP - [facility] 11/22/22 Transformation Analyst Relationship Specialty Start Date End Date Jean Carlos Izquierdo MD [address] [place] [address] PCP - General Family Medicine 11/22/22 Team Status: Inactive Member Role Status Dates Jean Carlos Izquierdo MD Primary Care Provider Active Start: December 01, 2023 End: December 01, 2023 Nita Webster APRN Attending Provider Active Start: December 01, 2023 End: December 01, 2023 Goals (unrecognized section and content) Goals may be documented in a n alternate section FOR RECORDS PERTAINING TO PATIENTS WHO ARE OR HAVE BEEN ENROLLED IN A CHEMICAL DEPENDENCY/SUBSTANCEABUSE PROGRAM, SOME INFORMATION MAY BE OMITTED. This clinical summary was aggregated from multiple sources. Caution should be exercised in using it in the provision of clinical care. This summary normalizes information from multiple sources, and as a consequence, information in this document may materially change the coding, format and clinical context of patient data. In addition, data may be omitted in some cases. CLINICAL DECISIONS SHOULD BE BASED ON THE PRIMARY CLINICAL RECORDS. [facility]. provides no warranty or guarantee of the accuracy or completeness of information in this document.
== END 2024-02-02 19:00 | disposition home or self-care (01) ==
LOC: LAB 18:59
PROVIDERS: PCP Family Medicine; Visit Provider Obstetrics & Gynecology
DX: Z01.419 Encounter for gynecological examination (general) (routine) without abnormal findings (principal)
CPT/HCPCS: 87624; 88175